=== PATIENT | male | born 1970 | race African-American/Black ===

== ENCOUNTER 2016-04-25 11:43 | Emergency (ER) | payer MEDICAID ==
[~2016-04-25] VITALS: Ht 165.1 cm; Wt 66.0 kg
[~2016-04-25 11:43] MED LIST: ALBU8.5H INH; ALPR2TAB7 PO; BACL10TA PO; CLIN-89 PO; CLON0.2T PO; DIAZ10TA PO; DULO30CA52 PO; GABA-329 PO; HYDR-3995 PO; METO50TA5 PO; QUET200T58 PO; TRAM50TA4 PO
--- OUTSIDE RECORDS SUMMARY | 2016-04-25 11:49 | XMS REPORT | Continuity of Care Document ---
Author Author [facility] Organization [facility] Address Unknown Phone Unavailable Care Team Providers Care Acct Exec Name Role Phone Amy NOLAN MD Primary Care Physician [phone] Insurance Providers Payer Name Policy Number Subscriber Name Relationship Roxanne [employer] [id number] Tristian Stovall 20 Self Advance Directives Directive Response Recorded Date/Time Resuscitation Documents on File No 01/20/14 3:30pm Problems Medical Problems Problem Onset Date Status UTI (urinary tract infection) Unknown Active Suprapubic catheter dysfunction Unknown Active UTI (urinary tract infection) Unknown Active Suprapubic catheter dysfunction Unknown Active Medications Medication Dose Route Sig Days/Qty Instructions Order Date Discontinued Date Status Baclofen 1 Tab PO THREE TIMES A DAY 01/19/14 Active Gabapentin 1 Cap PO THREE TIMES A DAY 01/19/14 Active Metoprolol Succinate 50 Mg PO DAILY 01/19/14 Active Clonidine HCl 1 Tab PO DAILY 01/19/14 Active Diazepam NEEDED 01/19/14 Active Hydrocodone/Acetaminophen 1-2 Tab PO EVERY 4-6 HOURS PRN PAIN 20 Qty Active Social History Social History Problem Response Recorded Date/Time Hx Alcohol Use No 01/19/2014 7:10pm Has the pt used tobacco in the last 12 months Yes 01/20/2014 3:25pm Tobacco Usage none 12/19/2013 7:29pm Query Response Start Date Stop Date Smoking Status Current every day smoker Hospital Discharge Instructions No hospital discharge instructions. Plan of Care No plan of care. Functional Status Query Response Date Recorded Physical Hygiene Total Care January 19, 2014 7:10pm Physical Hygiene Total Care January 19, 2014 7:10pm Allergies, Adverse Reactions, Alerts Allergen Type Severity Reaction Status Last Updated Morphine Allergy Severe swelling of face Active 01/20/14 Immunizations Name Given Type Hx Influenza Vaccination Y nov 2013 Historical Hx Pneumococcal Vaccination No Historical Hx Influenza Vaccination Y nov 2013 Historical Vital Signs Acute Vital Signs Vital Response Date/Time Temperature (Fahrenheit) 98.1 deg F (96.8 - 99.1) Temperature (Calculated Celsius) 36.60951 degrees C (36.0 - 37.3) Temperature Source Temporal Pulse Rate (adult) 83 bpm (60 - 100) Respiratory Rate 16 breaths/min (10 - 20) O2 Sat by Pulse Oximetry 97 % (90 - 100) Oxygen Delivery Method Room Air Blood Pressure 140/101 mm Hg Blood Pressure Source Automatic Cuff Height 5 ft 9 in Weight 126 lb Body Mass Index 18.0 kg/m^2 Results Test Source Date Result Interp. Ref. Range Comments Alanine Aminotransferase (ALT/SGPT) January 19, 2014 8:58pm 39 U/L N 21 -72 Albumin January 19, 2014 8:58pm 3.3 G/DL L 3.5-5.0 Albumin/Globulin Ratio January 19, 2014 8:58pm 1.0 RATIO L 1.1-2.2 Alkaline Phosphatase January 19, 2014 8:58pm 107 U/L N 38-126 Anion Gap January 19, 2014 8:58pm 5 MEQ/L N 5-15 Aspartate Amino Transf (AST/SGOT) January 19, 2014 8:58pm 25 U/L N 17- 59 BUN/Creatinine Ratio January 19, 2014 8:58pm 23 RATIO N 6-26 Band Neutrophils # December 19, 2013 8:08pm 0.1 T/MM3 - Band Neutrophils % December 19, 2013 8:08pm 1.0 % N 0-6 Blood Urea Nitrogen January 19, 2014 8:58pm 18.0 MG/DL N 9-20 Calcium Level January 19, 2014 8:58pm 9.2 MG/DL N 8.4-10.2 Calculated Osmolality January 19, 2014 8:58pm 274 MOSM/KG N 261-280 Carbon Dioxide Level January 19, 2014 8:58pm 28 MEQ/L N 22-30 Chloride Level January 19, 2014 8:58pm 109 MEQ/L H 98-107 Creatinine January 19, 2014 8:58pm 0.8 MG/DL N 0.8-1.5 Eosinophils # (Manual) December 19, 2013 8:08pm 0.3 T/MM3 N 0-0.5 Eosinophils % (Manual) December 19, 2013 8:08pm 5.0 % H 0-4 Globulin January 19, 2014 8:58pm 3.4 G/DL N 2.4-3.6 Glucose Level January 19, 2014 8:58pm 77 MG/DL N 75-110 Hematocrit January 19, 2014 8:58pm 42.9 % N 41-53 Hemoglobin January 19, 2014 8:58pm 14.2 GM/DL N 13.5-17.5 Lymphocytes # (Auto) January 19, 2014 8:58pm 2.2 T/MM3 N 1-4.8 Lymphocytes # (Manual) December 19, 2013 8:08pm 0.7 T/MM3 L 1-4.8 Lymphocytes % (Manual) December 19, 2013 8:08pm 11.0 % L 23-45 Lymphocytes (%) (Auto) January 19, 2014 8:58pm 30.9 % N 23-45 Mean Corpuscular Hemoglobin January 19, 2014 8:58pm 27.5 UUG N 26-34 Mean Corpuscular Hemoglobin Concent January 19, 2014 8:58pm 33.1 GM/DL N 31-37 Mean Corpuscular Volume January 19, 2014 8:58pm 83.1 UM3 N 80-100 Mean Platelet Volume January 19, 2014 8:58pm 9.0 UM3 L 9.4-12.4 Monocytes # (Auto) January 19, 2014 8:58pm 0.5 T/MM3 N 0-0.8 Monocytes # (Manual) December 19, 2013 8:08pm 0.7 T/MM3 N 0-0.8 Monocytes % (Manual) December 19, 2013 8:08pm 11.0 % H 0-9.0 Monocytes (%) (Auto) January 19, 2014 8:58pm 7.0 % N 0-9.0 Neutrophils # (Auto) January 19, 2014 8:58pm 4.5 T/MM3 N 1.8-7.7 Neutrophils # (Manual) December 19, 2013 8:08pm 4.4 T/MM3 N 1.8-7.7 Neutrophils % (Manual) December 19, 2013 8:08pm 72.0 % H 33-66 Neutrophils (%) (Auto) January 19, 2014 8:58pm 62.1 % N 33-66 Platelet Count January 19, 2014 8:58pm 181 T/MM3 N 130-400 Potassium Level January 19, 2014 8:58pm 4.2 MEQ/L N 3.6-5 RDW Standard Deviation January 19, 2014 8:58pm 48.2 FL N 36.9-50.2 Red Blood Count January 19, 2014 8:58pm 5.16 M/MM3 N 4.50-5.90 Sodium Level January 19, 2014 8:58pm 142 MEQ/L N 134-144 Total Bilirubin January 19, 2014 8:58pm 0.30 MG/DL N 0.20-1.30 Total Protein January 19, 2014 8:58pm 6.7 G/DL N 6.3-8.2 Urine Amorphous Phosphates January 19, 2014 9:20pm Moderate - Has specimen been collected/obtained? Y Urine Bacteria January 19, 2014 9:20pm 4+ H - Has specimen been collected/obtained? Y Urine Bilirubin January 19, 2014 9:20pm Negative - Has specimen been collected/obtained? Y Urine Blood January 19, 2014 9:20pm 2+ H - Has specimen been collected /obtained? Y Urine Collection Type January 19, 2014 9:20pm Savage indwelling - Has specimen been collected/obtained? Y Urine Color January 19, 2014 9:20pm Yellow - Has specimen been collected/obtained? Y Urine Culture Indicated December 19, 2013 8:11pm Cult reflexed &setup - Has specimen been collected/obtained? Y Urine Glucose (UA) January 19, 2014 9:20pm Negative - Has specimen been collected/obtained? Y Urine Ketones January 19, 2014 9:20pm Negative - Has specimen been collected/obtained? Y Urine Leukocyte Esterase January 19, 2014 9:20pm 3+ H - Has specimen been collected/obtained? Y Urine Nitrite January 19, 2014 9:20pm Negative - Has specimen been collected/obtained? Y Urine Protein January 19, 2014 9:20pm Trace H - Has specimen been collected/obtained? Y Urine RBC January 19, 2014 9:20pm 1-3 /HPF - Has specimen been collected/obtained? Y Urine Specific [place] January 19, 2014 9:20pm 1.010 L - Has specimen been collected/obtained? Y Urine Squamous Epithelial Cells December 19, 2013 8:11pm None seen - Has specimen been collected/obtained? Y Urine Triple Phosphate Crystals January 19, 2014 9:20pm Many - Has specimen been collected/obtained? Y Urine Turbidity January 19, 2014 9:20pm Cloudy - Has specimen been collected/obtained? Y Urine Urobilinogen January 19, 2014 9:20pm 0.2 EU/DL - Has specimen been collected/obtained? Y Urine WBC January 19, 2014 9:20pm 1-3 /HPF - Has specimen been collected/obtained? Y Urine pH January 19, 2014 9:20pm >=9.0 H - Has specimen been collected /obtained? Y White Blood Count January 19, 2014 8:58pm 7.2 T/MM3 N 4.5-11.0 Chemistry Specimen Hemolysis January 19, 2014 8:58pm < 15 0-25 0-25 : No Hemolysis.26-70: Slight Hemolysis - can falsely elevate K and Urine Protein. 71-285: Moderate Hemolysis - can falsely elevate K, Troponin I, CA 19-9, PTH, CSF GLucose, and Urine Protein, and can falsely decrease Phenytoin. 286-999: Gross Hemolysis - can falsely elevate K, Troponin I, CA 19-9, PTH, CSF Glucose, and Urine Protine, and can falsely decrease Phenytoin. Recommend specimen recollection. Turbidity January 19, 2014 8:58pm < 20 0-20 Glomerular Filtration Rate Calc January 19, 2014 8:58pm 107 - Venous Blood Lactate December 19, 2013 8:08pm 1.9 MMOL/L N 0.6-2.2 Procalcitonin December 19, 2013 8:08pm < 0.05 NG/ML - PCT </=0.5 ng/ mL - sepsis not likely;PCT >0.5 and </=2 ng/mL - sepsis possible; PCT >2 ng/mL - sepsis likely; PCT >/=10 ng/mL - systemic inflammatory response - sepsis or septic shock highly indicated. Icterus Index January 19, 2014 8:58pm < 2 0-7 Blood Culture Peripheral Blood December 19, 2013 8:08pm NO GROWTH AFTER 5 DAYS Urine Culture Urine, Savage Indwelling January 19, 2014 9:20pm Morganella Morganii Ssp Carlos Name: TRISTIAN STOVALL Unit #: [id number] : 1970 Sex: M Loc / Svc: ED DOS: 12/19/13 Signed Report #: [id number] DIAGNOSTIC IMAGING REPORT TYPE OF EXAM: CHEST 1 VIEW Dictated By: JOSE KARIMI MD INDICATION: ITS.REASON: cough, fever CHEST 1 VIEW: Comparison: None FINDINGS: The lungs are clear. There is no abnormal airspace opacity, pleural effusion or pneumothorax identified. 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 The heart size, pulmonary vasculature and mediastinum are within normal limits. Severe degenerative changes and osseous destruction in the right proximal humerus and humeral head. IMPRESSION: No acute cardiopulmonary abnormality. . Procedures Procedure Status Date Provider(s) ROUTINE VENIPUNCTURE completed 12/19/13 CHEST X-RAY 1 VIEW FRONTAL completed 12/19/13 COMPREHEN METABOLIC PANEL completed 12/19/13 URINALYSIS AUTO W/SCOPE completed 12/19/13 ASSAY OF LACTIC ACID completed 12/19/13 PROCALCITONIN (PCT) completed 12/19/13 BL SMEAR W/DIFF WBC COUNT completed 12/19/13 COMPLETE CBC AUTOMATED completed 12/19/13 BLOOD CULTURE FOR BACTERIA completed 12/19/13 BLOOD CULTURE FOR BACTERIA completed 12/19/13 CULTURE AEROBIC IDENTIFY completed 12/19/13 URINE CULTURE/COLONY COUNT completed 12/19/13 MICROBE SUSCEPTIBLE ALBERTO completed 12/19/13 MICROBE SUSCEPTIBLE ALBERTO completed 12/19/13 HYDRATE IV INFUSION ADD-ON completed 12/19/13 HYDRATE IV INFUSION ADD-ON completed 12/19/13 THER/PROPH/DIAG IV INF INIT completed 12/19/13 TX/PRO/DX INJ NEW DRUG ADDON completed 12/19/13 TX/PRO/DX INJ NEW DRUG ADDON completed 12/19/13 EMERGENCY DEPT VISIT completed 12/19/13"INJECTION, HYDROMORPHONE, UP TO 4 MG" completed 12/19/13822669"INJECTION, LEVOFLOXACIN, 250 MG" completed 12/19/13"INJECTION, ONDANSETRON HYDROCHLORIDE, PER 1 MG" completed 12/19/13011970"INFUSION, NORMAL SALINE SOLUTION , 1000 CC" completed 12/19/13 0910723% DEXTROSE/WATER (500 ML=1 UNIT) completed 12/19/13 ROUTINE VENIPUNCTURE completed 01/19/14 INSERT TEMP BLADDER CATH completed 01/19/14 CHRIS MARQUIS MD COMPREHEN METABOLIC PANEL completed 01/19/14 URINALYSIS AUTO W/SCOPE completed 01/19/14 COMPLETE CBC W/AUTO DIFF WBC completed 01/19/14 CULTURE AEROBIC IDENTIFY completed 01/19/14 URINE CULTURE/COLONY COUNT completed 01/19/14 MICROBE SUSCEPTIBLE ALBERTO completed 01/19/14 THER/PROPH/DIAG IV INF INIT completed 01/19/14 TX/PRO/DX INJ NEW DRUG ADDON completed 01/19/14 TX/PRO/DX INJ SAME DRUG COPYING MACHINE REPAIRER completed 01/19/14 EMERGENCY DEPT VISIT completed 01/19/14110407"INJECTION, CEFTRIAXONE SODIUM, PER 250 MG" completed 01/19/14372348"INJECTION, HYDROMORPHONE, UP TO 4 MG" completed 01/19/14173800"INJECTION, HYDROMORPHONE, UP TO 4 MG" completed 01/19/14263788"INJECTION, HEPARIN SODIUM, (HEPARIN LOCK FLUSH), PER completed 003"INFUSION, NORMAL SALINE SOLUTION , 250 CC" completed 01/19/14 Encounters Encounter Location Date/Time Discharged Recurring [facility] 01/25/14 3:00pm Departed Emergency Room [facility] 01/19/14 6:35pm Departed Emergency Room [facility] 12/19/13 7:07pm
--- OUTSIDE RECORDS SUMMARY | 2016-04-25 11:49 | XMS REPORT | Continuity of Care Document ---
Author Author [facility] Organization [facility] Address Unknown Phone Unavailable Care Team Providers Care Career Services Assistant Name Role Phone Amy NOLAN MD Primary Care Physician [phone] Insurance Providers Payer Name Policy Number Subscriber Name Relationship Roxanne [employer] [id number] WilmanTristian 20 Self Problems Medical Problems Problem Onset Date Status UTI (urinary tract infection) Unknown Active Suprapubic catheter dysfunction Unknown Active UTI (urinary tract infection) Unknown Active Suprapubic catheter dysfunction Unknown Active UTI (urinary tract infection) Unknown Active Constipation due to neurogenic bowel Unknown Active Constipation due to neurogenic bowel Unknown Active Medications Medication Dose Route Sig Days/Qty Instructions Order Date Discontinued Date Status Clonidine HCl 1 Tab PO TWICE A DAY 01/19/14 Active Diazepam 1 Tab PO TWICE A DAY PRN SPASMS 01/19/14 Active Tramadol HCl 50 Mg PO THREE TIMES A DAY PRN PAIN 02/12/14 Active Baclofen 1 Tab PO THREE TIMES A DAY 05/07/14 Active Gabapentin 1 Tab PO THREE TIMES A DAY 05/07/14 Active Hydrocodone/Acetaminophen 1 Tab PO Every 6 Hours PRN PAIN 05/07/14 Active Metoprolol Tartrate 50 Mg PO TWICE DAILY WITH MEALS Take 1 tablet, by mouth, 2 times a day with meals. 05/07/14 Active Quetiapine Fumarate 2 Tab PO BEDTIME 05/07/14 Active Alprazolam 1 Tab PO FOUR TIMES DAILY PRN ANXIETY 05/07/14 Active Lactulose 20 G PO DAILY 30 Days 05/19/14 Active Social History Social History Problem Response Recorded Date/Time Hx Substance Use No 05/19/2014 1:31pm Hx Alcohol Use No 05/19/2014 1:31pm Has the pt used tobacco in the last 12 months Yes 03/09/2014 3:16pm Tobacco Usage none 12/19/2013 7:29pm Query Response Start Date Stop Date Smoking Status Current every day smoker Hospital Discharge Instructions No hospital discharge instructions. Plan of Care No plan of care. Functional Status Query Response Date Recorded Physical Hygiene Assist May 19, 2014 1:31pm Disabilities Paralysis May 19, 2014 1:31pm Devices Used Wheelchair May 19, 2014 1:31pm Dressing Assist May 19, 2014 1:31pm Ambulation Assist May 19, 2014 1:31pm Diet Assist May 19, 2014 1:31pm Mental Status Alert Oriented May 19, 2014 4:04pm Disabilities Paralysis May 19, 2014 1:31pm Devices Used Wheelchair May 19, 2014 1:31pm Physical Hygiene Assist May 19, 2014 1:31pm Dressing Assist May 19, 2014 1:31pm Ambulation Assist May 19, 2014 1:31pm Diet Assist May 19, 2014 1:31pm Allergies, Adverse Reactions, Alerts Allergen Type Severity Reaction Status Last Updated Morphine Allergy Severe swelling of face Active 05/19/14 Immunizations Name Given Type Hx Influenza Vaccination Y nov 2013 Historical Hx Pneumococcal Vaccination No Historical Hx Influenza Vaccination Y nov 2013 Historical Vital Signs Acute Vital Signs Vital Response Date/Time Temperature (Fahrenheit) 98.0 deg F (96.8 - 99.1) Temperature (Calculated Celsius) 36.41482 degrees C (36.0 - 37.3) Pulse Rate (adult) 66 bpm (60 - 100) Respiratory Rate 16 breaths/min (10 - 20) O2 Sat by Pulse Oximetry 96 % (90 - 100) Blood Pressure 166/115 mm Hg Height 5 ft 9 in Weight 141 lb Body Mass Index 20.0 kg/m^2 Results Test Source Date Result Interp. Ref. Range Comments Amylase Level May 19, 2014 1:22pm 81 U/L N 30-110 Lipase May 19, 2014 1:22pm 36 U/L N 23-300 Alanine Aminotransferase (ALT/SGPT) May 19, 2014 1:22pm 30 U/L N 21- 72 Albumin May 19, 2014 1:22pm 3.3 G/DL L 3.5-5.0 Albumin/Globulin Ratio May 19, 2014 1:22pm 1.0 RATIO L 1.1-2.2 Alkaline Phosphatase May 19, 2014 1:22pm 81 U/L N 38-126 Anion Gap May 19, 2014 1:22pm 11 MEQ/L N 5-15 Aspartate Amino Transf (AST/SGOT) May 19, 2014 1:22pm 26 U/L N 17-59 BUN/Creatinine Ratio May 19, 2014 1:22pm 29 RATIO H 6-26 Band Neutrophils # December 19, 2013 8:08pm 0.1 T/MM3 - Band Neutrophils % December 19, 2013 8:08pm 1.0 % N 0-6 Basophils # (Auto) May 19, 2014 1:22pm 0.0 T/MM3 N 0-0.2 Basophils (%) (Auto) May 19, 2014 1:22pm 0.7 % N 0-2 Blood Urea Nitrogen May 19, 2014 1:22pm 23.0 MG/DL H 9-20 Calcium Level May 19, 2014 1:22pm 8.9 MG/DL N 8.4-10.2 Calculated Osmolality May 19, 2014 1:22pm 276 MOSM/KG N 261-280 Carbon Dioxide Level May 19, 2014 1:22pm 27 MEQ/L N 22-30 Chemistry Specimen Hemolysis May 19, 2014 1:22pm 19 N 0-25 0-25: No Hemolysis.26-70: Slight Hemolysis - can falsely elevate K and Urine Protein. 71-285: Moderate Hemolysis - can falsely elevate K, Troponin I, CA 19-9, PTH, CSF GLucose, and Urine Protein, and can falsely decrease Phenytoin. 286-999: Gross Hemolysis - can falsely elevate K, Troponin I, CA 19-9, PTH, CSF Glucose, and Urine Protine, and can falsely decrease Phenytoin. Recommend specimen recollection. Chloride Level May 19, 2014 1:22pm 104 MEQ/L N 98-107 Creatinine May 19, 2014 1:22pm 0.8 MG/DL N 0.8-1.5 Eosinophils # (Auto) May 19, 2014 1:22pm 0.2 T/MM3 N 0-0.5 Eosinophils # (Manual) December 19, 2013 8:08pm 0.3 T/MM3 N 0-0.5 Eosinophils % (Manual) December 19, 2013 8:08pm 5.0 % H 0-4 Eosinophils (%) (Auto) May 19, 2014 1:22pm 2.8 % N 0-4 Globulin May 19, 2014 1:22pm 3.3 G/DL N 2.4-3.6 Glomerular Filtration Rate Calc May 19, 2014 1:22pm 107 - Glucose Level May 19, 2014 1:22pm 77 MG/DL N 75-110 Hematocrit May 19, 2014 1:22pm 44.1 % N 41-53 Hemoglobin May 19, 2014 1:22pm 14.7 GM/DL N 13.5-17.5 Icterus Index May 19, 2014 1:22pm < 2 0-7 Immature Granulocyte # (Auto) May 19, 2014 1:22pm 0.01 T/MM3 N 0.00- 0.03 Immature Granulocyte % (Auto) May 19, 2014 1:22pm 0.2 % N 0.0-0.5 Lab Scanned Report March 02, 2014 7:36pm LAB TEST FORM REQUEST - Lymphocytes # (Auto) May 19, 2014 1:22pm 2.4 T/MM3 N 1-4.8 Lymphocytes # (Manual) December 19, 2013 8:08pm 0.7 T/MM3 L 1-4.8 Lymphocytes % (Manual) December 19, 2013 8:08pm 11.0 % L 23-45 Lymphocytes (%) (Auto) May 19, 2014 1:22pm 42.3 % N 23-45 Mean Corpuscular Hemoglobin May 19, 2014 1:22pm 27.4 UUG N 26-34 Mean Corpuscular Hemoglobin Concent May 19, 2014 1:22pm 33.3 GM/DL N 31-37 Mean Corpuscular Volume May 19, 2014 1:22pm 82.3 UM3 N 80-100 Mean Platelet Volume May 19, 2014 1:22pm 10.1 UM3 N 9.4-12.4 Monocytes # (Auto) May 19, 2014 1:22pm 0.8 T/MM3 N 0-0.8 Monocytes # (Manual) December 19, 2013 8:08pm 0.7 T/MM3 N 0-0.8 Monocytes % (Manual) December 19, 2013 8:08pm 11.0 % H 0-9.0 Monocytes (%) (Auto) May 19, 2014 1:22pm 13.2 % H 0-9.0 Neutrophils # (Auto) May 19, 2014 1:22pm 2.3 T/MM3 N 1.8-7.7 Neutrophils # (Manual) December 19, 2013 8:08pm 4.4 T/MM3 N 1.8-7.7 Neutrophils % (Manual) December 19, 2013 8:08pm 72.0 % H 33-66 Neutrophils (%) (Auto) May 19, 2014 1:22pm 40.8 % N 33-66 Platelet Count May 19, 2014 1:22pm 220 T/MM3 N 130-400 Potassium Level May 19, 2014 1:22pm 4.3 MEQ/L N 3.6-5 Procalcitonin March 02, 2014 6:28pm < 0.05 NG/ML - PCT </=0.5 ng/ mL - sepsis not likely;PCT >0.5 and </=2 ng/mL - sepsis possible; PCT >2 ng/mL - sepsis likely; PCT >/=10 ng/mL - systemic inflammatory response - sepsis or septic shock highly indicated. RDW Standard Deviation May 19, 2014 1:22pm 44.0 FL N 36.9-50.2 Red Blood Count May 19, 2014 1:22pm 5.36 M/MM3 N 4.50-5.90 Sodium Level May 19, 2014 1:22pm 142 MEQ/L N 134-144 Total Bilirubin May 19, 2014 1:22pm 0.20 MG/DL N 0.20-1.30 Total Protein May 19, 2014 1:22pm 6.6 G/DL N 6.3-8.2 Troponin I May 19, 2014 1:22pm < 0.012 ng/ml 0-0.12 Troponin values with a difference of 55% increase fromorginal troponin value represent a true biological DELTA value. (%increase Calc=Orginal Troponin value, divided by subsequent Troponin value, multiplied by 100) Turbidity May 19, 2014 1:22pm < 20 0-20 Urine Amorphous Phosphates January 19, 2014 9:20pm Moderate - Has specimen been collected/obtained? Y Urine Bacteria May 19, 2014 1:35pm 1+ H - Has specimen been collected /obtained? Y Urine Bilirubin May 19, 2014 1:35pm Negative - Has specimen been collected/obtained? Y Urine Blood May 19, 2014 1:35pm 1+ H - Has specimen been collected/ obtained? Y Urine Collection Type May 19, 2014 1:35pm Voided-not cc-midstr - Has specimen been collected/obtained? Y Urine Color May 19, 2014 1:35pm Yellow - Has specimen been collected/obtained? Y Urine Culture Indicated May 19, 2014 1:35pm Cult reflexed &setup - Has specimen been collected/obtained? Y Urine Glucose (UA) May 19, 2014 1:35pm Negative - Has specimen been collected/obtained? Y Urine Ketones May 19, 2014 1:35pm Negative - Has specimen been collected/obtained? Y Urine Leukocyte Esterase May 19, 2014 1:35pm 1+ H - Has specimen been collected/obtained? Y Urine Nitrite May 19, 2014 1:35pm Positive H - Has specimen been collected/obtained? Y Urine Protein May 19, 2014 1:35pm Negative - Has specimen been collected/obtained? Y Urine RBC May 19, 2014 1:35pm 1-3 /HPF - Has specimen been collected/obtained? Y Urine Specific [place] May 19, 2014 1:35pm 1.020 - Has specimen been collected/obtained? Y Urine Squamous Epithelial Cells May 19, 2014 1:35pm 0-5 - Has specimen been collected/obtained? Y Urine Triple Phosphate Crystals January 19, 2014 9:20pm Many - Has specimen been collected/obtained? Y Urine Turbidity May 19, 2014 1:35pm Sl cloudy - Has specimen been collected/obtained? Y Urine Urobilinogen May 19, 2014 1:35pm 0.2 EU/DL - Has specimen been collected/obtained? Y Urine WBC May 19, 2014 1:35pm 10-20 /HPF H - Has specimen been collected/obtained? Y Urine Yeast May 19, 2014 1:35pm 4+ H - Has specimen been collected/ obtained? Y Urine pH May 19, 2014 1:35pm 6.0 - Has specimen been collected/ obtained? Y Venous Blood Lactate May 07, 2014 5:03pm 1.2 MMOL/L N 0.6-2.2 White Blood Count May 19, 2014 1:22pm 5.7 T/MM3 N 4.5-11.0 Blood Culture Peripheral Blood May 07, 2014 5:03pm NO GROWTH AFTER 5 DAYS Urine Culture Urine, Savage Indwelling May 07, 2014 6:40pm Enterococ Faecalis - (Group D) Procedures Procedure Status Date Provider(s) OFFICE/OUTPATIENT VISIT EST completed 02/28/14 ROUTINE VENIPUNCTURE completed 03/02/14 COMPREHEN METABOLIC PANEL completed 03/02/14 ASSAY OF LACTIC ACID completed 03/02/14 PROCALCITONIN (PCT) completed 03/02/14 COMPLETE CBC W/AUTO DIFF WBC completed 03/02/14 COMPREHEN METABOLIC PANEL completed 05/07/14 URINALYSIS AUTO W/SCOPE completed 05/07/14 ASSAY OF LACTIC ACID completed 05/07/14 COMPLETE CBC W/AUTO DIFF WBC completed 05/07/14 BLOOD CULTURE FOR BACTERIA completed 05/07/14 URINE CULTURE/COLONY COUNT completed 05/07/14 HYDRATE IV INFUSION ADD-ON completed 05/07/14 HYDRATE IV INFUSION ADD-ON completed 05/07/14 THER/PROPH/DIAG IV INF INIT completed 05/07/14 TX/PRO/DX INJ NEW DRUG ADDON completed 05/07/14 TX/PRO/DX INJ NEW DRUG ADDON completed 05/07/14 EMERGENCY DEPT VISIT completed 05/07/14 369330"INJECTION, CEFTRIAXONE SODIUM, PER 250 MG" completed 05/07/14 801127"INJECTION, HYDROMORPHONE, UP TO 4 MG" completed 05/07/14844434"INJECTION, ONDANSETRON HYDROCHLORIDE, PER 1 MG" completed 05/07/14 [id number]"INFUSION, NORMAL SALINE SOLUTION , 1000 CC" completed 05/07/14 [id number]"INFUSION, NORMAL SALINE SOLUTION , 250 CC" completed 05/07/14 Encounters Encounter Location Date/Time Registered Emergency Room [facility] 05/19/14 12:43pm Departed Emergency Room [facility] 05/07/14 4:15pm Discharged Recurring [facility] 03/09/14 3:01pm Registered Clinic [facility] 03/02/14 6:09pm Discharged Recurring [facility] 03/02/14 3:00pm Registered Clinic [facility] 02/28/14 12:44pm Recent Diagnosis
[2016-04-25 11:50] VITALS: PULSE 77; RESP 18; TEMP 98; O2SAT 99; Ht 165.1 cm; Wt 66.0 kg
--- OUTSIDE RECORDS SUMMARY | 2016-04-25 11:50 | XMS REPORT | Continuity of Care Document ---
Author Author [facility] Organization [facility] Address Unknown Phone Unavailable Care Team Providers Care Derivatives Trader Name Role Phone Amy NOLAN MD Primary Care Physician [phone] Insurance Providers Payer Name Policy Number Subscriber Name Relationship Roxanne [employer] [id number] Tristian Stovall 20 Self Advance Directives Directive Response Recorded Date/Time Dr Kat Resuscitation Status Full Code 02/12/14 8:31am Resuscitation Documents on File No 02/12/14 9:36am Problems Medical Problems Problem Onset Date Status [...] 4-6 HOURS PRN PAIN 20 Qty Active Tramadol HCl 50 Mg PO THREE TIMES A DAY PRN PAIN 02/12/14 Active Meperidine HCl PO PRN 02/12/14 Active Social History Social History Problem Response Recorded Date/Time Chewing Tobacco Status No 02/12/2014 9:37am Hx Substance Use No 02/12/2014 9:37am Hx Alcohol Use No 02/12/2014 9:37am Has the pt used tobacco in the last 12 months Yes 02/12/2014 9:37am Tobacco Usage none 12/19/2013 7:29pm Query Response [...] Vital Signs Vital Response Date/Time Temperature (Fahrenheit) 98.4 deg F (96.8 - 99.1) Temperature (Calculated Celsius) 36.86605 degrees C (36.0 - 37.3) Temperature Source Temporal Pulse Rate (adult) 64 bpm (60 - 100) Respiratory Rate 16 breaths/min (10 - 20) O2 Sat by Pulse Oximetry 97 % (90 - 100) Oxygen Delivery Method Room Air Blood Pressure 159/101 mm Hg Blood Pressure Source Automatic Cuff Height 5 ft 9 in Weight 134 lb Body Mass Index 19.0 kg/m^2 Results Test Source Date Result Interp. [...] Has specimen been collected/obtained? Y Urine Specific [place] January 19, 2014 9:20pm 1.010 L - [...] Urine, Savage Indwelling January 19, 2014 9:20pm Gricelda Gonzalez Name: TRISTIAN STOVALL Unit #: [id number] : 1970 Sex: M Loc / Svc: SCU DOS: 02/12/14 Signed Report #: [id number] DIAGNOSTIC IMAGING REPORT TYPE OF EXAM: PICC LINE REPLACEMENT w FLUORO Dictated By: HOWIE KARIMI MD PICC LINE EXCHANGE: After discussing the details of the procedure, including risks, the patient wished to proceed. Informed consent was obtained. The patient's existing left-sided PICC line was examined via fluoroscopy and showed the tip of the existing PICC line residing in the mid subclavian vein. The hub of the existing PICC line was cut off. A 0.018" guidewire was advanced through the PICC line to the cavoatrial junction. The existing PICC line was removed. Then using fluoroscopic guidance, a new single lumen 4 Fr PICC line was advanced over the guidewire with the tip placed near the cavoatrial junction. A fluoroscopic image was obtained. The guidewire was then removed. Two additional fluoroscopic images were obtained. Internal catheter length is 47 cm. I was able to aspirate blood and inject freely through the port. The procedure was completed without complication. Following this, the patient was transferred back to his pre-operative room. Impression: Successful exchange of the patient's left-sided PICC line. Howie Herzog RPA/ performed this under my personal supervision. . Procedures Procedure Status Date Provider(s) ROUTINE [...] ADDON completed 12/19/13 EMERGENCY DEPT VISIT completed 12/19/13508904"INJECTION, HYDROMORPHONE, UP TO 4 MG" completed 12/19/13730909"INJECTION, LEVOFLOXACIN, 250 MG" completed 12/19/13309766"INJECTION, ONDANSETRON HYDROCHLORIDE, PER 1 MG" completed 12/19/13088590"INFUSION, NORMAL SALINE SOLUTION , 1000 CC" completed 12/19/134962399% DEXTROSE/WATER (500 ML=1 UNIT) completed 12/19/13 ROUTINE VENIPUNCTURE completed 01/19/14 INSERT TEMP BLADDER CATH completed 01/19/14 CHRIS MARQUIS MD [facility] METABOLIC PANEL completed 01/19/14 URINALYSIS AUTO W/SCOPE completed 01/19/14 COMPLETE CBC W/AUTO DIFF WBC completed 01/19/14 CULTURE AEROBIC IDENTIFY completed 01/19/14 URINE CULTURE/COLONY COUNT completed 01/19/14 MICROBE SUSCEPTIBLE ALBERTO completed 01/19/14 THER/PROPH/DIAG IV INF INIT completed 01/19/14 TX/PRO/DX INJ NEW DRUG ADDON completed 01/19/14 TX/PRO/DX INJ SAME DRUG CLOTH EXAMINER HAND completed 01/19/14 EMERGENCY DEPT VISIT completed 01/19/14443719"INJECTION, CEFTRIAXONE SODIUM, PER 250 MG" completed 01/19/14552000"INJECTION, HYDROMORPHONE, UP TO 4 MG" completed 01/19/14843590"INJECTION, HYDROMORPHONE, UP TO 4 MG" completed 01/19/14207379"INJECTION, HEPARIN SODIUM, (HEPARIN LOCK FLUSH), PER completed [id number]"INFUSION, NORMAL SALINE SOLUTION , 250 CC" completed 01/19/14 Cystoscopy with urethral dilation completed 02/12/14 NAHID DIETZ MD Encounters Encounter Location Date/Time Discharged Recurring [facility] 01/25/14 3:00pm Departed Emergency Room [facility] 01/19/14 6:35pm Departed Emergency Room [facility] 12/19/13 7:07pm
--- OUTSIDE RECORDS SUMMARY | 2016-04-25 11:50 | XMS REPORT | Continuity of Care Document ---
Author Author [facility] Organization [facility] Address Unknown Phone Unavailable Care Team Providers Care Analytical Lab Technician Name Role Phone Amy NOLAN MD Primary Care Physician [phone] Insurance Providers Payer Name Policy Number Subscriber Name Relationship Roxanne [employer] [id number] Tristian Stovall 20 Self Advance Directives Directive Response Recorded Date/Time Advanced Directives Type None 05/07/14 4:15pm Problems Medical Problems Problem Onset Date Status UTI (urinary tract infection) Unknown Active Suprapubic catheter dysfunction Unknown Active UTI (urinary tract infection) Unknown Active Suprapubic catheter dysfunction Unknown Active UTI (urinary tract infection) Unknown Active Medications Medication Dose Route Sig [...] Fumarate 2 Tab PO BEDTIME 05/07/14 Active Prazosin HCl 1-2 Cap PO BEDTIME PRN PRN ORDERS 05/07/14 Active Alprazolam 1 Tab PO FOUR TIMES DAILY PRN ANXIETY 05/07/14 Active Phenazopyridine HCl 200 Mg PO AFTER MEALS PRN BLADDER SPASMS OR PAIN 15 Qty 05/07/14 Active Social History Social History Problem Response Recorded Date/Time Hx Substance Use No 05/07/2014 5:18pm Hx Alcohol Use No 05/07/2014 5:18pm Has the pt used tobacco in the last 12 months Yes 03/09/2014 3:16pm Tobacco Usage none 12/19/2013 7:29pm Query Response Start Date Stop Date Smoking Status Current every day smoker Hospital Discharge Instructions No hospital discharge instructions. Plan of Care No plan of care. Functional Status Query Response Date Recorded Physical Hygiene Total Care May 07, 2014 5:18pm Disabilities Visual May 07, 2014 5:18pm Devices Used Glasses Wheelchair May 07, 2014 5:18pm Dressing Assist May 07, 2014 5:18pm Ambulation Total Care May 07, 2014 5:18pm Diet Assist May 07, 2014 5:18pm Mental Status Alert May 07, 2014 7:14pm Disabilities Visual May 07, 2014 5:18pm Devices Used Glasses Wheelchair May 07, 2014 5:18pm Physical Hygiene Total Care May 07, 2014 5:18pm Dressing Assist May 07, 2014 5:18pm Ambulation Total Care May 07, 2014 5:18pm Diet Assist May 07, 2014 5:18pm Allergies, Adverse Reactions, Alerts Allergen Type Severity Reaction Status Last Updated Morphine Allergy Severe swelling of face Active 05/07/14 Immunizations Name Given Type Hx Influenza Vaccination Y nov 2013 Historical Hx Pneumococcal Vaccination No Historical Hx Influenza Vaccination Y nov 2013 Historical Vital Signs Acute Vital Signs Vital Response Date/Time Temperature (Fahrenheit) 96.4 deg F (96.8 - 99.1) Temperature (Calculated Celsius) 35.65258 degrees C (36.0 - 37.3) Pulse Rate (adult) 75 bpm (60 - 100) Respiratory Rate 16 breaths/min (10 - 20) O2 Sat by Pulse Oximetry 97 % (90 - 100) Blood Pressure 153/91 mm Hg Height 5 ft 9 in Weight 145 lb Body Mass Index 21.0 kg/m^2 Results Test Source Date Result Interp. Ref. Range Comments Alanine Aminotransferase (ALT/SGPT) May 07, 2014 5:03pm 45 U/L N 21- 72 Albumin May 07, 2014 5:03pm 2.9 G/DL L 3.5-5.0 Albumin/Globulin Ratio May 07, 2014 5:03pm 0.9 RATIO L 1.1-2.2 Alkaline Phosphatase May 07, 2014 5:03pm 80 U/L N 38-126 Anion Gap May 07, 2014 5:03pm 10 MEQ/L N 5-15 Aspartate Amino Transf (AST/SGOT) May 07, 2014 5:03pm 25 U/L N 17-59 BUN/Creatinine Ratio May 07, 2014 5:03pm 19 RATIO N 6-26 Band Neutrophils # December 19, 2013 8:08pm 0.1 T/MM3 - Band Neutrophils % December 19, 2013 8:08pm 1.0 % N 0-6 Basophils # (Auto) May 07, 2014 5:03pm 0.0 T/MM3 N 0-0.2 Basophils (%) (Auto) May 07, 2014 5:03pm 0.5 % N 0-2 Blood Urea Nitrogen May 07, 2014 5:03pm 17.0 MG/DL N 9-20 Calcium Level May 07, 2014 5:03pm 8.6 MG/DL N 8.4-10.2 Calculated Osmolality May 07, 2014 5:03pm 280 MOSM/KG N 261-280 Carbon Dioxide Level May 07, 2014 5:03pm 25 MEQ/L N 22-30 Chemistry Specimen Hemolysis May 07, 2014 5:03pm < 15 0-25 0-25: No Hemolysis.26-70: Slight Hemolysis - [...] Phenytoin. Recommend specimen recollection. Chloride Level May 07, 2014 5:03pm 109 MEQ/L H 98-107 Creatinine May 07, 2014 5:03pm 0.9 MG/DL N 0.8-1.5 Eosinophils # (Auto) May 07, 2014 5:03pm 0.1 T/MM3 N 0-0.5 Eosinophils # (Manual) December 19, 2013 8:08pm 0.3 T/MM3 N 0-0.5 Eosinophils % (Manual) December 19, 2013 8:08pm 5.0 % H 0-4 Eosinophils (%) (Auto) May 07, 2014 5:03pm 1.8 % N 0-4 Globulin May 07, 2014 5:03pm 3.2 G/DL N 2.4-3.6 Glomerular Filtration Rate Calc May 07, 2014 5:03pm 93 - Glucose Level May 07, 2014 5:03pm 110 MG/DL N 75-110 Hematocrit May 07, 2014 5:03pm 39.5 % L 41-53 Hemoglobin May 07, 2014 5:03pm 13.6 GM/DL N 13.5-17.5 Icterus Index May 07, 2014 5:03pm < 2 0-7 Immature Granulocyte # (Auto) May 07, 2014 5:03pm 0.01 T/MM3 N 0.00- 0.03 Immature Granulocyte % (Auto) May 07, 2014 5:03pm 0.1 % N 0.0-0.5 Lab Scanned Report March 02, 2014 7:36pm LAB TEST FORM REQUEST - Lymphocytes # (Auto) May 07, 2014 5:03pm 2.5 T/MM3 N 1-4.8 Lymphocytes # (Manual) December 19, 2013 8:08pm 0.7 T/MM3 L 1-4.8 Lymphocytes % (Manual) December 19, 2013 8:08pm 11.0 % L 23-45 Lymphocytes (%) (Auto) May 07, 2014 5:03pm 33.3 % N 23-45 Mean Corpuscular Hemoglobin May 07, 2014 5:03pm 27.5 UUG N 26-34 Mean Corpuscular Hemoglobin Concent May 07, 2014 5:03pm 34.4 GM/DL N 31-37 Mean Corpuscular Volume May 07, 2014 5:03pm 80.0 UM3 N 80-100 Mean Platelet Volume May 07, 2014 5:03pm 9.5 UM3 N 9.4-12.4 Monocytes # (Auto) May 07, 2014 5:03pm 0.8 T/MM3 N 0-0.8 Monocytes # (Manual) December 19, 2013 8:08pm 0.7 T/MM3 N 0-0.8 Monocytes % (Manual) December 19, 2013 8:08pm 11.0 % H 0-9.0 Monocytes (%) (Auto) May 07, 2014 5:03pm 10.5 % H 0-9.0 Neutrophils # (Auto) May 07, 2014 5:03pm 4.1 T/MM3 N 1.8-7.7 Neutrophils # (Manual) December 19, 2013 8:08pm 4.4 T/MM3 N 1.8-7.7 Neutrophils % (Manual) December 19, 2013 8:08pm 72.0 % H 33-66 Neutrophils (%) (Auto) May 07, 2014 5:03pm 53.8 % N 33-66 Platelet Count May 07, 2014 5:03pm 241 T/MM3 N 130-400 Potassium Level May 07, 2014 5:03pm 3.9 MEQ/L N 3.6-5 Procalcitonin March 02, 2014 6:28pm < 0.05 NG/ML - PCT </=0.5 ng/ mL - sepsis not likely;PCT >0.5 and </=2 ng/mL - sepsis possible; PCT >2 ng/mL - sepsis likely; PCT >/=10 ng/mL - systemic inflammatory response - sepsis or septic shock highly indicated. RDW Standard Deviation May 07, 2014 5:03pm 43.2 FL N 36.9-50.2 Red Blood Count May 07, 2014 5:03pm 4.94 M/MM3 N 4.50-5.90 Sodium Level May 07, 2014 5:03pm 144 MEQ/L N 134-144 Total Bilirubin May 07, 2014 5:03pm 0.20 MG/DL N 0.20-1.30 Total Protein May 07, 2014 5:03pm 6.1 G/DL L 6.3-8.2 Turbidity May 07, 2014 5:03pm < 20 0-20 Urine Amorphous Phosphates January 19, 2014 9:20pm Moderate - Has specimen been collected/obtained? Y Urine Bacteria May 07, 2014 6:08pm 3+ H - Has specimen been collected /obtained? Y Urine Bilirubin May 07, 2014 6:08pm Negative - Has specimen been collected/obtained? Y Urine Blood May 07, 2014 6:08pm Trace-intact H - Has specimen been collected/obtained? Y Urine Collection Type May 07, 2014 6:08pm Savage indwelling - Has specimen been collected/obtained? Y Urine Color May 07, 2014 6:08pm Yellow - Has specimen been collected/obtained? Y Urine Culture Indicated May 07, 2014 6:08pm Cult reflexed &setup - Has specimen been collected/obtained? Y Urine Glucose (UA) May 07, 2014 6:08pm Negative - Has specimen been collected/obtained? Y Urine Ketones May 07, 2014 6:08pm Negative - Has specimen been collected/obtained? Y Urine Leukocyte Esterase May 07, 2014 6:08pm 2+ H - Has specimen been collected/obtained? Y Urine Nitrite May 07, 2014 6:08pm Positive H - Has specimen been collected/obtained? Y Urine Protein May 07, 2014 6:08pm Negative - Has specimen been collected/obtained? Y Urine RBC May 07, 2014 6:08pm 0-1 /HPF - Has specimen been collected/obtained? Y Urine Specific [place] May 07, 2014 6:08pm 1.020 - Has specimen been collected/obtained? Y Urine Squamous Epithelial Cells December 19, 2013 8:11pm None seen - Has specimen been collected/obtained? Y Urine Triple Phosphate Crystals January 19, 2014 9:20pm Many - Has specimen been collected/obtained? Y Urine Turbidity May 07, 2014 6:08pm Clear - Has specimen been collected/obtained? Y Urine Urobilinogen May 07, 2014 6:08pm 0.2 EU/DL - Has specimen been collected/obtained? Y Urine WBC May 07, 2014 6:08pm 20-30 /HPF H - Has specimen been collected/obtained? Y Urine pH May 07, 2014 6:08pm 7.0 - Has specimen been collected/ obtained? Y Venous Blood Lactate May 07, 2014 5:03pm 1.2 MMOL/L N 0.6-2.2 White Blood Count May 07, 2014 5:03pm 7.6 T/MM3 N 4.5-11.0 Blood Culture Peripheral Blood December 19, 2013 8:08pm NO GROWTH AFTER 5 DAYS Urine Culture Urine, [place] Indwelling January 19, 2014 9:20pm Morganella Morganii Ssp Carlos Name: TRISTIAN STOVALL Unit #: [id number] : 1970 Sex: M Loc / Svc: [facility] DOS: 02/12/14 Signed Report #: [id number] DIAGNOSTIC IMAGING REPORT TYPE OF EXAM: PICC LINE REPLACEMENT w FLUORO Dictated By: JOSE KARIMI MD PICC LINE EXCHANGE: After discussing [...] exchange of the patient's left-sided PICC line. Jose Herzog RPA/RA performed this under my personal supervision. . Procedures Procedure Status Date Provider(s) REPLACE PICC CATH completed 02/12/14 JOSE KARIMI MD CHANGE OF BLADDER TUBE completed 02/12/14 NAHID DIETZ MD FLUOROGUIDE FOR VEIN DEVICE completed 02/12/14267556VYHBC WIRE completed 02/12/14218380"INJECTION, CEFTRIAXONE SODIUM, PER 250 MG" completed 02/12/14151953"INJECTION, HEPARIN SODIUM, (HEPARIN LOCK FLUSH), PER completed 003"INJECTION, MEPERIDINE HYDROCHLORIDE, PER 100 MG" completed 02/12/14380070"INJECTION, MEPERIDINE HYDROCHLORIDE, PER 100 MG" completed 02/12/14"INJECTION, ONDANSETRON HYDROCHLORIDE, PER 1 MG" completed 02/12/14 PROPOFOL INJ 500 MG/50ML completed 02/12/14640467"INJECTION, FENTANYL CITRATE, 0.1 MG" completed 02/12/14508239"INFUSION, NORMAL SALINE SOLUTION , 250 CC" completed 02/12/14 OFFICE/OUTPATIENT VISIT EST completed 02/28/14 ROUTINE VENIPUNCTURE completed 03/02/14 COMPREHEN METABOLIC PANEL completed 03/02/14 ASSAY OF LACTIC ACID completed 03/02/14 PROCALCITONIN (PCT) completed 03/02/14 COMPLETE CBC W/AUTO DIFF WBC completed 03/02/14 Encounters Encounter Location Date/Time Departed Emergency Room [facility] 05/07/14 4:15pm Discharged [facility] 03/09/14 3:01pm Registered Clinic [facility] 03/02/14 6:09pm Discharged [facility] 03/02/14 3:00pm Registered [facility] 02/28/14 12:44pm Recent Diagnosis
--- OUTSIDE RECORDS SUMMARY | 2016-04-25 11:50 | XMS REPORT | Continuity of Care Document ---
Author Author [facility] Organization [facility] Address Unknown Phone Unavailable Care Team Providers Care Precast Concrete Ironworker Name Role Phone Amy NOLAN MD Primary Care Physician [phone] Insurance Providers Payer Name Policy Number Subscriber Name Relationship Roxanne [employer] [id number] Tristian Stovall 20 Self Advance Directives Directive Response Recorded Date/Time Resuscitation Documents on File No 03/02/14 6:00pm Problems Medical Problems Problem Onset Date Status [...] TIMES A DAY PRN PAIN 02/12/14 Active Social History Social History Problem Response Recorded Date/Time Hx Substance Use No 02/12/2014 9:37am Hx Alcohol Use No 02/12/2014 9:37am Has the pt used tobacco in the last 12 months Yes 03/02/2014 5:53pm Tobacco Usage none 12/19/2013 7:29pm Query Response [...] Morphine Allergy Severe swelling of face Active 03/02/14 Immunizations Name Given Type Hx Influenza Vaccination Y nov 2013 Historical Hx Pneumococcal Vaccination No Historical Hx Influenza Vaccination Y nov 2013 Historical Vital Signs Acute Vital Signs Vital Response Date/Time Temperature (Fahrenheit) 96.8 deg F (96.8 - 99.1) Temperature (Calculated Celsius) 36.07530 degrees C (36.0 - 37.3) Temperature Source Temporal Pulse Rate (adult) 63 bpm (60 - 100) Respiratory Rate 12 breaths/min (10 - 20) O2 Sat by Pulse Oximetry 98 % (90 - 100) Oxygen Delivery Method Room Air Blood Pressure 152/103 mm Hg Blood Pressure Source Automatic Cuff Height 5 ft 9 in Weight 140 lb Body Mass Index 20.0 kg/m^2 Results Test Source Date Result Interp. Ref. Range Comments Lab Scanned Report March 02, 2014 7:36pm LAB TEST FORM REQUEST - Alanine Aminotransferase (ALT/SGPT) March 02, 2014 6:28pm 41 U/L N 21- 72 Albumin March 02, 2014 6:28pm 4.0 G/DL N 3.5-5.0 Albumin/Globulin Ratio March 02, 2014 6:28pm 1.2 RATIO N 1.1-2.2 Alkaline Phosphatase March 02, 2014 6:28pm 125 U/L N 38-126 Anion Gap March 02, 2014 6:28pm 6 MEQ/L N 5-15 Aspartate Amino Transf (AST/SGOT) March 02, 2014 6:28pm 38 U/L N 17- 59 BUN/Creatinine Ratio March 02, 2014 6:28pm 24 RATIO N 6-26 Band Neutrophils # December 19, 2013 8:08pm 0.1 T/MM3 - Band Neutrophils % December 19, 2013 8:08pm 1.0 % N 0-6 Basophils # (Auto) March 02, 2014 6:28pm 0.0 T/MM3 N 0-0.2 Basophils (%) (Auto) March 02, 2014 6:28pm 0.4 % N 0-2 Blood Urea Nitrogen March 02, 2014 6:28pm 17.0 MG/DL N 9-20 Calcium Level March 02, 2014 6:28pm 9.5 MG/DL N 8.4-10.2 Calculated Osmolality March 02, 2014 6:28pm 272 MOSM/KG N 261-280 Carbon Dioxide Level March 02, 2014 6:28pm 29 MEQ/L N 22-30 Chemistry Specimen Hemolysis March 02, 2014 6:28pm < 15 0-25 0-25: No Hemolysis.26-70: Slight [...] decrease Phenytoin. Recommend specimen recollection. Chloride Level March 02, 2014 6:28pm 106 MEQ/L N 98-107 Creatinine March 02, 2014 6:28pm 0.7 MG/DL L 0.8-1.5 Eosinophils # (Auto) March 02, 2014 6:28pm 0.1 T/MM3 N 0-0.5 Eosinophils # (Manual) December 19, 2013 8:08pm 0.3 T/MM3 N 0-0.5 Eosinophils % (Manual) December 19, 2013 8:08pm 5.0 % H 0-4 Eosinophils (%) (Auto) March 02, 2014 6:28pm 1.9 % N 0-4 Globulin March 02, 2014 6:28pm 3.4 G/DL N 2.4-3.6 Glomerular Filtration Rate Calc March 02, 2014 6:28pm 124 - Glucose Level March 02, 2014 6:28pm 87 MG/DL N 75-110 Hematocrit March 02, 2014 6:28pm 45.4 % N 41-53 Hemoglobin March 02, 2014 6:28pm 14.9 GM/DL N 13.5-17.5 Icterus Index March 02, 2014 6:28pm < 2 0-7 Immature Granulocyte # (Auto) March 02, 2014 6:28pm 0.00 T/MM3 N 0.00- 0.03 Immature Granulocyte % (Auto) March 02, 2014 6:28pm 0.0 % N 0.0-0.5 Lymphocytes # (Auto) March 02, 2014 6:28pm 1.9 T/MM3 N 1-4.8 Lymphocytes # (Manual) December 19, 2013 8:08pm 0.7 T/MM3 L 1-4.8 Lymphocytes % (Manual) December 19, 2013 8:08pm 11.0 % L 23-45 Lymphocytes (%) (Auto) March 02, 2014 6:28pm 26.6 % N 23-45 Mean Corpuscular Hemoglobin March 02, 2014 6:28pm 27.6 UUG N 26-34 Mean Corpuscular Hemoglobin Concent March 02, 2014 6:28pm 32.8 GM/DL N 31-37 Mean Corpuscular Volume March 02, 2014 6:28pm 84.1 UM3 N 80-100 Mean Platelet Volume March 02, 2014 6:28pm 10.3 UM3 N 9.4-12.4 Monocytes # (Auto) March 02, 2014 6:28pm 0.6 T/MM3 N 0-0.8 Monocytes # (Manual) December 19, 2013 8:08pm 0.7 T/MM3 N 0-0.8 Monocytes % (Manual) December 19, 2013 8:08pm 11.0 % H 0-9.0 Monocytes (%) (Auto) March 02, 2014 6:28pm 8.5 % N 0-9.0 Neutrophils # (Auto) March 02, 2014 6:28pm 4.6 T/MM3 N 1.8-7.7 Neutrophils # (Manual) December 19, 2013 8:08pm 4.4 T/MM3 N 1.8-7.7 Neutrophils % (Manual) December 19, 2013 8:08pm 72.0 % H 33-66 Neutrophils (%) (Auto) March 02, 2014 6:28pm 62.6 % N 33-66 Platelet Count March 02, 2014 6:28pm 197 T/MM3 N 130-400 Potassium Level March 02, 2014 6:28pm 4.6 MEQ/L N 3.6-5 Procalcitonin March 02, 2014 6:28pm < 0.05 NG/ML - PCT </=0.5 ng/ mL - sepsis not likely;PCT >0.5 and </=2 ng/mL - sepsis possible; PCT >2 ng/mL - sepsis likely; PCT >/=10 ng/mL - systemic inflammatory response - sepsis or septic shock highly indicated. RDW Standard Deviation March 02, 2014 6:28pm 47.3 FL N 36.9-50.2 Red Blood Count March 02, 2014 6:28pm 5.40 M/MM3 N 4.50-5.90 Sodium Level March 02, 2014 6:28pm 141 MEQ/L N 134-144 Total Bilirubin March 02, 2014 6:28pm 0.50 MG/DL N 0.20-1.30 Total Protein March 02, 2014 6:28pm 7.4 G/DL N 6.3-8.2 Turbidity March 02, 2014 6:28pm < 20 0-20 Urine Amorphous Phosphates January [...] Has specimen been collected/obtained? Y Urine Specific [place] January 19, 2014 9:20pm 1.010 L - [...] - Has specimen been collected /obtained? Y Venous Blood Lactate March 02, 2014 6:28pm 1.6 MMOL/L N 0.6-2.2 White Blood Count March 02, 2014 6:28pm 7.3 T/MM3 N 4.5-11.0 Blood Culture Peripheral Blood December 19, 2013 8:08pm NO GROWTH AFTER 5 DAYS Urine Culture Urine, Savage Indwelling January 19, 2014 9:20pm Morganponcho Gonzalezii Ssp Carlos Name: TRISTIAN STOVALL Unit #: [id number] : 1970 Sex: M Loc / Svc: [facility] DOS: 02/12/14 Signed Report #: [id number] DIAGNOSTIC IMAGING REPORT TYPE OF EXAM: PICC [...] ADDON completed 12/19/13 EMERGENCY DEPT VISIT completed 12/19/13 [id number]"INJECTION, HYDROMORPHONE, UP TO 4 MG" completed 12/19/13 690897"INJECTION, LEVOFLOXACIN, 250 MG" completed 12/19/13 697776"INJECTION, ONDANSETRON HYDROCHLORIDE, PER 1 MG" completed 12/19/13 921449"INFUSION, NORMAL SALINE SOLUTION , 1000 CC" completed 12/19/13 [id number]% DEXTROSE/WATER (500 ML=1 UNIT) completed 12/19/13 ROUTINE [...] ADDON completed 01/19/14 TX/PRO/DX INJ SAME DRUG RADIO ASSEMBLER completed 01/19/14 EMERGENCY DEPT VISIT completed 01/19/14193487"INJECTION, CEFTRIAXONE SODIUM, PER 250 MG" completed 01/19/14288999"INJECTION, HYDROMORPHONE, UP TO 4 MG" completed 01/19/14775188"INJECTION, HYDROMORPHONE, UP TO 4 MG" completed 01/19/14"INJECTION, HEPARIN SODIUM, (HEPARIN LOCK FLUSH), PER completed 003"INFUSION, NORMAL SALINE SOLUTION , 250 CC" completed 01/19/14 REPLACE PICC CATH completed 02/12/14 JOSE KARIMI MD CHANGE OF BLADDER TUBE completed 02/12/14 NAHID DIETZ MD FLUOROGUIDE FOR VEIN DEVICE completed 02/12/14060844EVQND WIRE completed 02/12/14432242"INJECTION, CEFTRIAXONE SODIUM, PER 250 MG" completed 02/12/14214268"INJECTION, HEPARIN SODIUM, (HEPARIN LOCK FLUSH), PER completed 003"INJECTION, MEPERIDINE HYDROCHLORIDE, PER 100 MG" completed 02/12/14303369"INJECTION, MEPERIDINE HYDROCHLORIDE, PER 100 MG" completed 02/12/14"INJECTION, ONDANSETRON HYDROCHLORIDE, PER 1 MG" completed 02/12/14 PROPOFOL INJ 500 MG/50ML completed 02/12/14"INJECTION, FENTANYL CITRATE, 0.1 MG" completed 02/12/14012844"INFUSION, NORMAL SALINE SOLUTION , 250 CC" completed 02/12/14 OFFICE/OUTPATIENT VISIT EST completed 02/28/14 Encounters Encounter Location Date/Time Discharged Recurring [facility] 03/04/14 1:00pm Registered Clinic [facility] 03/02/14 6:09pm Registered Clinic [facility] 02/28/14 12:44pm Discharged Recurring [facility] 01/20/14 2:53pm Departed Emergency Room [facility] 01/19/14 6:35pm Departed Emergency Room [facility] 12/19/13 7:07pm
--- OUTSIDE RECORDS SUMMARY | 2016-04-25 11:51 | XMS REPORT | Continuity of Care Document ---
Author Author [facility] Organization [facility] Address Unknown Phone Unavailable Support Name Relationship Address Phone MICHOACANO BRITO MD Caregiver [facility] [address] [place] [address] Unavailable GILMER SALAZAR Next Of Kin [address] [place] [address] CP Insurance Providers Payer Name Policy Number Subscriber Name Relationship Medicaid [place] [id number] Tristian Stovall 20 Self Advance Directives Directive Response Recorded Date/Time Advanced Directives Type None 12/19/13 7:07pm Problems Medical Problems Problem Onset Date Status UTI (urinary tract infection) Unknown Active Medications Medication Dose Route Sig Days/Qty Instructions Order Date Discontinued Date Status Levofloxacin 1 Tab PO QD 10 Qty 12/19/13 Active Ondansetron 4 Mg PO Q6H/0300,0900,1500,2100 For NAUSEA &/OR VOMITING 10 Qty Oral disintegrating tablet 12/19/13 Active Social History Social History Problem Response Recorded Date/Time Smoking Status Current every day smoker 12/19/2013 7:30pm When did patient START smoking? 18 12/19/2013 7:30pm Hx Alcohol Use No 12/19/2013 7:30pm Hospital Discharge Instructions No hospital discharge instructions. Plan of Care No plan of care. Functional Status Query Response Date Recorded Physical Hygiene Total Care December 19, 2013 7:30pm Disabilities None December 19, 2013 7:30pm Devices Used Catheter Wheelchair December 19, 2013 7:30pm Dressing Total Care December 19, 2013 7:30pm Ambulation Total Care December 19, 2013 7:30pm Diet Total Care December 19, 2013 7:30pm Mental Status Alert December 19, 2013 9:10pm Disabilities None December 19, 2013 7:30pm Devices Used Catheter Wheelchair December 19, 2013 7:30pm Physical Hygiene Total Care December 19, 2013 7:30pm Dressing Total Care December 19, 2013 7:30pm Ambulation Total Care December 19, 2013 7:30pm Diet Total Care December 19, 2013 7:30pm Allergies, Adverse Reactions, Alerts Allergen Type Severity Reaction Status Last Updated Morphine Allergy Severe swelling of face Active 12/19/13 Immunizations Name Given Type Hx Influenza Vaccination Y nov 2013 Historical Hx Pneumococcal Vaccination No Historical Hx Influenza Vaccination Y nov 2013 Historical Vital Signs Acute Vital Signs Vital Response Date/Time Temperature (Fahrenheit) 98.0 deg F (96.8 - 99.1) Temperature (Calculated Celsius) 36.18259 degrees C (36.0 - 37.3) Pulse Rate (adult) 83 bpm (60 - 100) Respiratory Rate 20 breaths/min (10 - 20) O2 Sat by Pulse Oximetry 97 % (90 - 100) Blood Pressure 131/95 mm Hg Height 5 ft 9 in Weight 131 lb Body Mass Index 19.0 kg/m^2 Results Test Source Date Result Interp. Ref. Range Comments Potassium Level December 19, 2013 8:08pm 4.6 MEQ/L N 3.6-5 Procalcitonin December 19, 2013 8:08pm < 0.05 NG/ML - PCT </=0.5 ng/ mL - sepsis not likely;PCT >0.5 and </=2 ng/mL - sepsis possible; PCT >2 ng/mL - sepsis likely; PCT >/=10 ng/mL - systemic inflammatory response - sepsis or septic shock highly indicated. Eosinophils # (Manual) December 19, 2013 8:08pm 0.3 T/MM3 N 0-0.5 Monocytes # (Manual) December 19, 2013 8:08pm 0.7 T/MM3 N 0-0.8 Lymphocytes # (Manual) December 19, 2013 8:08pm 0.7 T/MM3 L 1-4.8 Neutrophils # (Manual) December 19, 2013 8:08pm 4.4 T/MM3 N 1.8-7.7 Band Neutrophils # December 19, 2013 8:08pm 0.1 T/MM3 - Eosinophils % (Manual) December 19, 2013 8:08pm 5.0 % H 0-4 Monocytes % (Manual) December 19, 2013 8:08pm 11.0 % H 0-9.0 Lymphocytes % (Manual) December 19, 2013 8:08pm 11.0 % L 23-45 Band Neutrophils % December 19, 2013 8:08pm 1.0 % N 0-6 Neutrophils % (Manual) December 19, 2013 8:08pm 72.0 % H 33-66 Mean Platelet Volume December 19, 2013 8:08pm 10.8 UM3 N 9.4-12.4 Platelet Count December 19, 2013 8:08pm 195 T/MM3 N 130-400 RDW Standard Deviation December 19, 2013 8:08pm 48.5 FL N 36.9-50.2 Mean Corpuscular Hemoglobin Concent December 19, 2013 8:08pm 34.1 GM/DL N 31-37 Mean Corpuscular Hemoglobin December 19, 2013 8:08pm 27.5 UUG N 26-34 Mean Corpuscular Volume December 19, 2013 8:08pm 80.6 UM3 N 80-100 Hematocrit December 19, 2013 8:08pm 44.0 % N 41-53 Hemoglobin December 19, 2013 8:08pm 15.0 GM/DL N 13.5-17.5 Red Blood Count December 19, 2013 8:08pm 5.46 M/MM3 N 4.50-5.90 White Blood Count December 19, 2013 8:08pm 6.1 T/MM3 N 4.5-11.0 Urine Culture Indicated December 19, 2013 8:11pm Cult reflexed &setup - Has specimen been collected/obtained? Y Urine Triple Phosphate Crystals December 19, 2013 8:11pm Mod - Has specimen been collected/obtained? Y Urine Amorphous Phosphates December 19, 2013 8:11pm Many - Has specimen been collected/obtained? Y Urine Bacteria December 19, 2013 8:11pm 4+ H - Has specimen been collected/obtained? Y Urine Squamous Epithelial Cells December 19, 2013 8:11pm None seen - Has specimen been collected/obtained? Y Urine RBC December 19, 2013 8:11pm 10-20 /HPF H - Has specimen been collected/obtained? Y Urine WBC December 19, 2013 8:11pm Tntc /HPF H - Has specimen been collected/obtained? Y Alanine Aminotransferase (ALT/SGPT) December 19, 2013 8:08pm 34 U/L N 21 -72 Aspartate Amino Transf (AST/SGOT) December 19, 2013 8:08pm 36 U/L N 17- 59 Albumin/Globulin Ratio December 19, 2013 8:08pm 1.0 RATIO L 1.1-2.2 Globulin December 19, 2013 8:08pm 3.5 G/DL N 2.4-3.6 Albumin December 19, 2013 8:08pm 3.4 G/DL L 3.5-5.0 Total Protein December 19, 2013 8:08pm 6.9 G/DL N 6.3-8.2 Alkaline Phosphatase December 19, 2013 8:08pm 106 U/L N 38-126 Total Bilirubin December 19, 2013 8:08pm 0.60 MG/DL N 0.20-1.30 Calcium Level December 19, 2013 8:08pm 8.7 MG/DL N 8.4-10.2 Calculated Osmolality December 19, 2013 8:08pm 278 MOSM/KG N 261-280 Glucose Level December 19, 2013 8:08pm 85 MG/DL N 75-110 Glomerular Filtration Rate Calc December 19, 2013 8:08pm 93 - BUN/Creatinine Ratio December 19, 2013 8:08pm 27 RATIO H 6-26 Creatinine December 19, 2013 8:08pm 0.9 MG/DL N 0.8-1.5 Blood Urea Nitrogen December 19, 2013 8:08pm 24.0 MG/DL H 9-20 Anion Gap December 19, 2013 8:08pm 10 MEQ/L N 5-15 Carbon Dioxide Level December 19, 2013 8:08pm 27 MEQ/L N 22-30 Chloride Level December 19, 2013 8:08pm 106 MEQ/L N 98-107 Sodium Level December 19, 2013 8:08pm 143 MEQ/L N 134-144 Turbidity December 19, 2013 8:08pm < 20 0-20 Chemistry Specimen Hemolysis December 19, 2013 8:08pm 162 H 0-25 0-25: No Hemolysis.26-70: Slight Hemolysis - can falsely elevate K and Urine Protein. 71-285: Moderate Hemolysis - can falsely elevate K, Troponin I, CA 19-9, PTH, CSF GLucose, and Urine Protein, and can falsely decrease Phenytoin. 286-999: Gross Hemolysis - can falsely elevate K, Troponin I, CA 19-9, PTH, CSF Glucose, and Urine Protine, and can falsely decrease Phenytoin. Recommend specimen recollection. Icterus Index December 19, 2013 8:08pm < 2 0-7 Venous Blood Lactate December 19, 2013 8:08pm 1.9 MMOL/L N 0.6-2.2 Urine Blood December 19, 2013 8:11pm 3+ H - Has specimen been collected /obtained? Y Urine Bilirubin December 19, 2013 8:11pm Negative - Has specimen been collected/obtained? Y Urine Urobilinogen December 19, 2013 8:11pm Normal EU/DL - Has specimen been collected/obtained? Y Urine Ketones December 19, 2013 8:11pm Negative - Has specimen been collected/obtained? Y Urine Glucose (UA) December 19, 2013 8:11pm Negative - Has specimen been collected/obtained? Y Urine Protein December 19, 2013 8:11pm 1+ H - Has specimen been collected/obtained? Y Urine Nitrite December 19, 2013 8:11pm Positive H - Has specimen been collected/obtained? Y Urine Leukocyte Esterase December 19, 2013 8:11pm 3+ H - Has specimen been collected/obtained? Y Urine pH December 19, 2013 8:11pm 8.0 - Has specimen been collected/ obtained? Y Urine Specific [place] December 19, 2013 8:11pm 1.010 L - Has specimen been collected/obtained? Y Urine Turbidity December 19, 2013 8:11pm Turbid - Has specimen been collected/obtained? Y Urine Color December 19, 2013 8:11pm Yellow - Has specimen been collected/obtained? Y Urine Collection Type December 19, 2013 8:11pm Savage indwelling - Has specimen been collected/obtained? Y Procedures No known history of procedures. Encounters Encounter Location Date/Time Registered Emergency Room [facility] 12/19/13 7:07pm Recent Diagnosis
--- OUTSIDE RECORDS SUMMARY | 2016-04-25 11:52 | XMS REPORT | Continuity of Care Document ---
Demographics Preferred Language Unknown Marital Status Unknown Taoist Affiliation Unknown Race Unknown Ethnic Group Unknown Author Author [facility] Organization [facility] Address Unknown Phone Unavailable Allergies Active Description Code Type Severity Reaction Onset Reported/Identified Relationship to Patient Clinical Status Yes fentanyl 3571 Drug Allergy N/A N/A Confirmed or Verified Yes morphine 1545 Drug Allergy N/A N/A Confirmed or Verified Yes morphine morphine Drug Allergy Moderate RASH, EYES SWELL 12/23/2013 Yes morphine NKMA N/A N/A 01/29/2014 Yes fentanyl 3571 Drug Allergy N/A swelling, rash 02/08/2014 Yes morphine 1545 Drug Allergy N/A swelling, rash 02/08/2014 Medications Problems Date Dx Coded Attending Type Code Diagnosis Diagnosed By 02/08/2014 JUAN NOLAN MD 599.0 URIN TRACT INFECTION NOS 02/08/2014 JUAN NOLAN MD 599.60 URINARY OBSTRUCTION NOS 02/08/2014 JUAN NOLAN MD 787.02 NAUSEA ALONE Procedures Code Description Performed By Performed On 38.93 VENOUS CATHETERIZATION NEC Destiny REESE, Kamille W 12/23/2013 71890 URINALYSIS, AUTO, W/O SCOPE JUAN NOLAN MD 02/08/2014 92558 URINE CULTURE/COLONY COUNT JUAN NOLAN MD 02/08/2014 11302 THER/PROPH/DIAG INJ, SC/IM JUAN NOLAN MD 02/08/2014 20138 EMERGENCY DEPT VISIT JUAN NOLAN MD 02/08/2014 J0696 CEFTRIAXONE SODIUM INJECTION JUAN NOLAN MD 02/08/2014 J2175 MEPERIDINE HYDROCHL /100 MG JUAN NOLAN MD 02/08/2014 Results Test Result Range URINALYSIS, ROUTINE - 12/23/13 17:02 UA LEUKOCYTE ESTERASE DIPSTICK 2+ NEGATIVE UA NITRITE DIPSTICK POSITIVE NEGATIVE UA PROTEIN DIPSTICK NEGATIVE NEGATIVE UA GLUCOSE DIPSTICK NEGATIVE NEGATIVE UA KETONE DIPSTICK 1+ NEGATIVE UA UROBILINOGEN DIPSTICK NORMAL NORMAL UA BILIRUBIN DIPSTICK NEGATIVE NEGATIVE UA BLOOD DIPSTICK 2+ NEGATIVE UA COMMENT UA SPECIFIC GRAVITY 1.015 1.015-1.025 UR PH 7.0 5.0-7.0 UA MICROSCOPIC - 12/23/13 17:02 UA AMORPHOUS SEDIMENT 3+ UA BACTERIA 4+ NEGATIVE UA EPITHELIAL CELLS 2+ epi/hpf 0 - 1+ UA MUCUS 3+ NEG TO 1+ UA RBC 0-3 rbc/hpf 0 - 3 UA TRIPLE PHOSPHATE CRYSTALS PRESENT NEGATIVE UA VOLUME FOR EXAM 12.0 mL (12mL STD) UA WBC 20-50 wbc/hpf 0 - 5 URINE CULTURE - 12/23/13 17:02 Microbiology CBC W/DIFF - 12/23/13 17:13 BASOPHIL # 0.1 k/cumm 0.0-0.2 BASOPHIL % 1 % 0-1 COMMENT REVIEWED EOSINOPHIL # 0.1 k/cumm 0.1-0.5 EOSINOPHIL % 2 % 2-4 GRANULOCYTE # 3.2 k/cumm 2.0-9.0 GRANULOCYTE % 46 % 50-75 LYMPHOCYTE # 2.4 k/cumm 1.0-4.0 LYMPHOCYTE % 34 % 20-30 MEAN CELL HGB 26.5 pg 27.0-33.0 MEAN CELL HGB CONCENTRATION 32.5 g/dL 32.0-37.0 MEAN CELL VOLUME 81.6 fl 80.0-100.0 MONOCYTE # 1.2 k/cumm 0.1-1.0 MONOCYTE % 17 % 4-6 RED BLOOD CELL 5.10 m/cumm 4.00-6.00 RED CELL DISTRIBUTION WIDTH 16.3 % 11.0- 15.6 WHITE BLOOD CELL 7.0 k/cumm 5.0-10.0 HEMOGLOBIN 13.5 gm/dL 14.0-18.0 HEMATOCRIT 41.6 % 40.0-54.0 PLATELET COUNT 182 k/cumm 150-400 CHEM/HEM PROFILE-BEDSIDE - 12/23/13 17:22 POTASSIUM 3.7 mmol/L 3.5-5.3 METHOD Bedside ANION GAP -5 mmol/L 10-20 METHOD Bedside GLUCOSE 65 mg/dL 70-99 BLOOD UREA NITROGEN 14 mg/dL 7-20 CREATININE 1.0 mg/dL 0.8-1.3 HEMOGLOBIN 13.6 gm/dL 14.0-18.0 HEMATOCRIT 40.0 % 40.0-54.0 SODIUM 132 mmol/L 135-148 CHLORIDE 118 mmol/L 98-110 CARBON DIOXIDE 24 mmol/L 21-32 CALCIUM IONIZED 4.2 mg/dL 4.5-5.3 Urinalysis - 02/08/14 18:57 Bilirubin Negative Negative Blood Trace-inta Negative Color Yellow Glucose Negative Negative Ketones Negative Negative Leukocyte 1+ Negative Nitrite Negative Negative pH 6.0 5.0-9.0 Urine Appearance SLCLOUDY Protein Negative Negative Urobilinogen 0.2 MG/DL 0.20 Urine Bacteria 1+ Urine Comments REQUESTED BY DR TENNILLE NOLAN 02/08/2014 Urine RBC N0-2 Specific [place] 1.010 1.005-1.030 Urine WBC N16-20 Site VOID Culture Urine - 02/11/14 08:48 Culture Urine Collected: 02/08/14 17:45 GONORRHOEA DNA BY PCR - CHLAMYDIA DNA BY PCR - 03/10/14 14:55 Microbiology GRAM STAIN - 05/23/14 20:58 Microbiology CBC W/DIFF - 05/23/14 20:58 BASOPHIL # 0.1 k/cumm 0.0-0.2 BASOPHIL % 1 % 0-1 EOSINOPHIL # 0.2 k/cumm 0.1-0.5 EOSINOPHIL % 3 % 2-4 GRANULOCYTE # 3.8 k/cumm 2.0-9.0 GRANULOCYTE % 50 % 50-75 LYMPHOCYTE # 2.4 k/cumm 1.0-4.0 LYMPHOCYTE % 32 % 20-30 MEAN CELL HGB 27.6 pg 27.0-33.0 MEAN CELL HGB CONCENTRATION 33.5 g/dL 32.0-37.0 MEAN CELL VOLUME 82.2 fl 80.0-100.0 MONOCYTE # 1.0 k/cumm 0.1-1.0 MONOCYTE % 14 % 4-6 RED BLOOD CELL 5.84 m/cumm 4.00-6.00 RED CELL DISTRIBUTION WIDTH 14.9 % 11.0- 15.6 WHITE BLOOD CELL 7.5 k/cumm 5.0-10.0 HEMOGLOBIN 16.1 gm/dL 14.0-18.0 HEMATOCRIT 48.0 % 40.0-54.0 PLATELET COUNT 255 k/cumm 150-400 URINE CULTURE - 05/23/14 20:58 Microbiology CHEM/HEM PROFILE-BEDSIDE - 05/23/14 21:03 POTASSIUM 4.2 mmol/L 3.5-5.3 METHOD Bedside ANION GAP 20 mmol/L 10-20 METHOD Bedside GLUCOSE 88 mg/dL 70-99 BLOOD UREA NITROGEN 17 mg/dL 7-20 CREATININE 1.0 mg/dL 0.8-1.3 HEMOGLOBIN 17.0 gm/dL 14.0-18.0 HEMATOCRIT 50.0 % 40.0-54.0 SODIUM 144 mmol/L 135-148 CHLORIDE 103 mmol/L 98-110 CARBON DIOXIDE 26 mmol/L 21-32 CALCIUM IONIZED 4.8 mg/dL 4.5-5.3 URINALYSIS, ROUTINE - 05/23/14 21:32 UA LEUKOCYTE ESTERASE DIPSTICK 1+ NEGATIVE UA NITRITE DIPSTICK POSITIVE NEGATIVE UA PROTEIN DIPSTICK TRACE NEGATIVE UA GLUCOSE DIPSTICK NEGATIVE NEGATIVE UA KETONE DIPSTICK NEGATIVE NEGATIVE UA UROBILINOGEN DIPSTICK NORMAL NORMAL UA BILIRUBIN DIPSTICK NEGATIVE NEGATIVE UA BLOOD DIPSTICK 1+ NEGATIVE UA SPECIFIC GRAVITY 1.020 1.015-1.025 UR PH 6.0 5.0-7.0 UA MICROSCOPIC - 05/23/14 21:32 UA AMORPHOUS SEDIMENT 1+ UA BACTERIA 4+ NEGATIVE UA EPITHELIAL CELLS 1+ epi/hpf 0 - 1+ UA MUCUS 2+ NEG TO 1+ UA RBC 3-5 rbc/hpf 0 - 3 UA VOLUME FOR EXAM 12.0 mL (12mL STD) UA WBC 20-50 wbc/hpf 0 - 5 CBC W/DIFF - 03/27/15 10:47 EOSINOPHIL # 0.1 k/cumm 0.1-0.5 EOSINOPHIL % 1 % 2-4 GRANULOCYTE # 3.9 k/cumm 2.0-9.0 LYMPHOCYTE # 2.4 k/cumm 1.0-4.0 LYMPHOCYTE % 34 % 20-30 MEAN CELL HGB 27.9 pg 27.0-33.0 MEAN CELL HGB CONCENTRATION 35.3 g/dL 32.0-37.0 MEAN CELL VOLUME 79.3 fl 80.0-100.0 MONOCYTE # 0.6 k/cumm 0.1-1.0 MONOCYTE % 9 % 4-6 RED BLOOD CELL 5.26 m/cumm 4.00-6.00 RED CELL DISTRIBUTION WIDTH 14.8 % 11.0- 15.6 TARGET CELLS NOTED WHITE BLOOD CELL 7.0 k/cumm 5.0-10.0 HEMOGLOBIN 14.7 gm/dL 14.0-18.0 HEMATOCRIT 41.7 % 40.0-54.0 PLATELET COUNT 257 k/cumm 150-400 MANUAL DIFF(R) - 03/27/15 10:47 DIFFERENTIAL MANUAL SEGMENTED NEUTROPHIL % 56 % 50-70 CHEM/HEM PROFILE-BEDSIDE - 03/27/15 10:52 POTASSIUM 3.7 mmol/L 3.5-5.3 METHOD Bedside ANION GAP 18 mmol/L 10-20 METHOD Bedside GLUCOSE 80 mg/dL 70-99 BLOOD UREA NITROGEN 14 mg/dL 7-20 CREATININE 0.7 mg/dL 0.7-1.3 HEMOGLOBIN 14.6 gm/dL 14.0-18.0 HEMATOCRIT 43.0 % 40.0-54.0 SODIUM 142 mmol/L 135-148 CHLORIDE 104 mmol/L 98-110 CARBON DIOXIDE 24 mmol/L 21-32 CALCIUM IONIZED 4.8 mg/dL 4.5-5.3 URINALYSIS, ROUTINE - 03/27/15 11:02 UA LEUKOCYTE ESTERASE DIPSTICK 2+ NEGATIVE UA NITRITE DIPSTICK POSITIVE NEGATIVE UA PROTEIN DIPSTICK NEGATIVE NEGATIVE UA GLUCOSE DIPSTICK NEGATIVE NEGATIVE UA KETONE DIPSTICK NEGATIVE NEGATIVE UA UROBILINOGEN DIPSTICK NORMAL NORMAL UA BILIRUBIN DIPSTICK NEGATIVE NEGATIVE UA BLOOD DIPSTICK 2+ NEGATIVE UA SPECIFIC GRAVITY 1.016 1.015-1.025 UR PH 9.0 5.0-7.0 UA MICROSCOPIC - 03/27/15 11:02 UA AMORPHOUS SEDIMENT 2+ UA BACTERIA 1+ NEGATIVE UA RBC 0-3 rbc/hpf 0 - 3 UA VOLUME FOR EXAM 12.0 mL (12mL STD) UA WBC 5-10 wbc/hpf 0 - 5 URINE CULTURE - 03/27/15 12:58 Microbiology Encounters ACCT No. Visit Date/Time Discharge Status Pt. Type Provider Facility Loc./Unit Complaint [id number] 12/23/2013 00:00:00 2013 00:00:00 [facility] Emergency [facility] SHIVANI
--- OUTSIDE RECORDS SUMMARY | 2016-04-25 11:54 | XMS REPORT | Continuity of Care Document ---
Author Author [facility] Organization [facility] Address Unknown Phone Unavailable Care Team Providers Care Cashier Manager Name Role Phone Amy NOLAN MD Primary Care Physician [phone] Insurance Providers Payer Name Policy Number Subscriber Name Relationship Roxanne [employer] [id number] Tristian Stovall 20 Self Problems Medical Problems Problem Onset [...] 02/12/2014 9:37am Tobacco Usage none 12/19/2013 7:29pm Hospital Discharge Instructions No hospital discharge instructions. [...] F (96.8 - 99.1) Temperature (Calculated Celsius) 36.78424 degrees C (36.0 - 37.3) Temperature Source Temporal Pulse Rate (adult) 64 bpm (60 - 100) Respiratory Rate 16 breaths/min (10 - 20) O2 Sat by Pulse Oximetry 97 % (90 - 100) Oxygen Delivery Method Room Air Blood Pressure 159/101 mm Hg Blood Pressure Source Automatic Cuff Results Test Source Date Result Interp. Ref. [...] Has specimen been collected/obtained? Y Urine Specific [place]ado January 19, 2014 9:20pm 1.010 L - [...] Ssp Carlos Name: TRISTIAN STOVALL Unit #: [id number] : 1970 Sex: M Loc / Svc: [facility] DOS: 02/12/14 Signed Report #: [id number] DIAGNOSTIC IMAGING REPORT TYPE OF EXAM: PICC [...] the patient's left-sided PICC line. Jose Herzog RPA/ performed this under my personal [...] ADDON completed 12/19/13 EMERGENCY DEPT VISIT completed 12/19/13548102"INJECTION, HYDROMORPHONE, UP TO 4 MG" completed 12/19/13964881"INJECTION, LEVOFLOXACIN, 250 MG" completed 12/19/13"INJECTION, ONDANSETRON HYDROCHLORIDE, PER 1 MG" completed 12/19/13"INFUSION, NORMAL SALINE SOLUTION , 1000 CC" completed 12/19/135% DEXTROSE/WATER (500 ML=1 UNIT) completed 12/19/13 ROUTINE VENIPUNCTURE completed 01/19/14 INSERT TEMP BLADDER CATH completed 01/19/14 [facility] completed 01/19/14 URINALYSIS AUTO W/SCOPE completed 01/19/14 COMPLETE CBC W/AUTO DIFF WBC completed 01/19/14 CULTURE AEROBIC IDENTIFY completed 01/19/14 URINE CULTURE/COLONY COUNT completed 01/19/14 MICROBE SUSCEPTIBLE ALBERTO completed 01/19/14 THER/PROPH/DIAG IV INF INIT completed 01/19/14 TX/PRO/DX INJ NEW DRUG ADDON completed 01/19/14 TX/PRO/DX INJ SAME DRUG HEAD OF PRODUCT completed 01/19/14 EMERGENCY DEPT VISIT completed 01/19/14938164"INJECTION, CEFTRIAXONE SODIUM, PER 250 MG" completed 01/19/14830185"INJECTION, HYDROMORPHONE, UP TO 4 MG" completed 01/19/14319921"INJECTION, HYDROMORPHONE, UP TO 4 MG" completed 01/19/14880451"INJECTION, HEPARIN SODIUM, (HEPARIN LOCK FLUSH), PER completed 003"INFUSION, NORMAL SALINE SOLUTION , 250 CC" completed 01/19/14 REPLACE PICC CATH completed 02/12/14 JOSE KARIMI MD CHANGE OF BLADDER TUBE completed 02/12/14 NAHID DIETZ MD FLUOROGUIDE FOR VEIN DEVICE completed 02/12/14983651SAUZA WIRE completed 01/05/15 729081"INJECTION, CEFTRIAXONE SODIUM, PER 250 MG" completed 02/12/14"INJECTION, HEPARIN SODIUM, (HEPARIN LOCK FLUSH), PER completed "INJECTION, MEPERIDINE HYDROCHLORIDE, PER 100 MG" completed 02/12/14"INJECTION, MEPERIDINE HYDROCHLORIDE, PER 100 MG" completed 02/12/14"INJECTION, ONDANSETRON HYDROCHLORIDE, PER 1 MG" completed 02/12/14 PROPOFOL INJ 500 MG/50ML completed 02/12/14"INJECTION, FENTANYL CITRATE, 0.1 MG" completed 02/12/14"INFUSION, NORMAL SALINE SOLUTION , 250 CC" completed 02/12/14 Encounters Encounter Location Date/Time Registered Clinic [facility] 02/28/14 12:44pm Discharged [facility] 01/20/14 2:53pm Departed Emergency Room [facility] 01/19/14 6:35pm Departed Emergency Room [facility] 12/19/13 7:07pm
--- OUTSIDE RECORDS SUMMARY | 2016-04-25 11:55 | XMS REPORT | Continuity of Care Document ---
Author Author [facility] Organization [facility] Address Unknown Phone Unavailable Care Team Providers Care Tongue Trimmer Name Role Phone Amy NOLAN MD Primary Care Physician [phone] Insurance Providers Guarantor Cheri Stovall Address [address] [place] [address] CP Email DENIED/NO TO PT PORT Payer [facility] Policy Number [id number] Subscriber's Name WilmanCheri L Relationship 18 Self Effective Date 15 Expiration Date 16 Chief Complaint and Reason for Visit Chief Complaint Ear Pain/Injury Reason for Visit [id number] Neck pain Problems Active Problems Medical Problem Onset Date Status Abnormal ECG Unknown Resolved Acute bronchitis Unknown Acute Altered mental status Unknown Acute Bladder spasm Unknown Acute Chronic right hip pain Unknown Acute Constipation due to neurogenic bowel Unknown Chronic Constipation due to neurogenic bowel Unknown Acute Depression Unknown Acute Dysuria Unknown Acute Headache Unknown Acute Hypertension Unknown Chronic 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 Unknown Malfunction of indwelling urinary catheter Unknown Acute Pneumonia Unknown Resolved Quadriplegia Unknown Chronic Salicylate overdose Unknown Acute Suprapubic catheter dysfunction Unknown Acute Suprapubic catheter dysfunction Unknown Acute UTI (urinary tract infection) Unknown Resolved UTI (urinary tract infection) Unknown Acute UTI (urinary tract infection) Unknown Acute Past Problems Medical Problem Onset Date Neck pain Unknown Skin infection Unknown Medications Current Home Medications Medication Dose Units Route Directions Days Qty Instructions Start Date Acetaminophen/Hydrocodone Bitart (Randle 10-325 Tablet) 1 Each Tablet 2 Tab Oral Three Times A Day as needed for Pain 02/21/15 Albuterol Sulfate (Proair Hfa 90 Mcg/Actuation) 8.5 Gm Hfa.aer.ad 1 Puff Inhalation Every 4 Hours as needed for Prn Orders 08/24/14 Alprazolam 2 Mg Tablet 2 Mg Oral Three Times A Day 02/21/15 Baclofen 10 Mg Tablet 10 Mg Oral Three Times A Day 05/07/14 Clindamycin Hcl 150 Mg Capsule 1 Cap Oral Three Times A Day 21 Capsule TAKE WITH A FULL GLASS OF WATER TO AVOID ESOPHAGEAL IRRITATION. 04/22/16 Clonidine Hcl 0.2 Mg Tablet 0.2 Mg Oral Three Times A Day Diazepam (Valium) 10 Mg Tablet 10 Mg Oral Bedtime 01/19/14 Duloxetine Hcl 30 Mg Capsule.dr 30 Mg Oral Daily 11/19/15 Gabapentin 800 Mg Tablet 800 Mg Oral Three Times A Day 04/22/16 Metoprolol Tartrate 50 Mg Tablet 50 Mg Oral Twice Daily With Meals 05/07/14 Quetiapine Fumarate 200 Mg Tablet 200 Mg Oral Bedtime 12/20/14 Tramadol Hcl 50 Mg Tablet 50 Mg Oral Three Times A Day as needed for Pain 02/12/14 Past Home Medications Medication Directions Ordered Status Aspirin , 08/24/14 Discontinued Quetiapine Fumarate (Seroquel Xr) 50 Mg Tablet, 2 Tab Oral Bedtime 05/07/14 Discontinued Quetiapine Fumarate (Seroquel) 200 Mg Tablet, 200 Mg Oral Bedtime 08/24/14 Discontinued Social History Social History Problem Response Recorded Date/Time Onset Date Status Hx Substance Use No 04/22/2016 5:55pm Not Applicable Not Applicable Hx Alcohol Use No 04/22/2016 5:55pm Not Applicable Not Applicable Has the pt used tobacco in the last 12 months Yes 07/20/2015 5:50pm Not Applicable Not Applicable Tobacco Usage none smoke 08/28/2014 9:56pm Not Applicable Not Applicable Query Response Start Date Stop Date Smoking Status Unknown if ever smoked Hospital Discharge Instructions No hospital discharge instructions. Plan of Care Discharge Date 04/22/16 7:28pm Disposition 01 DISCHARGED HOME, SELF-CARE Condition at Discharge Stable Instructions/Education Provided Cellulitis (ED) Acute Neck Pain (ED) Prescriptions See Medication Section Referrals Amy NOLAN MD Address: [address] [place] [address] AMAURY SOLIS DO Address: [address] [place] [phone] Additional Instructions/Education Take the Clindamycin as prescribed. If this is not improving then follow up your primary care provider in clinic. I do want you to follow up with your PCP as well for work up of the neck pain that you have been having. Your CT scan today was normal. Care Plan and Goals Physician Care Plan Problem:Neck Pain, Ear infection Goal: Follow up with primary care provider Instructions: Take medications and follow care plan as discussed/written Functional Status No functional status results. Allergies, Adverse Reactions, Alerts Allergen Type Severity Reaction Status Last Updated Morphine Allergy Severe swelling of face Active 04/22/16 Immunizations Query Response on File Recorded Date/Time Hx Influenza Vaccination Y couple years ago 07/20/15 5:50pm Hx Pneumococcal Vaccination Y 201007/20/15 5:50pm Hx Influenza Vaccination Y couple years ago 07/20/15 5:50pm Influenza Vaccine Hx fall 201404/22/16 5:55pm Vital Signs Acute Vital Signs Vital Response Date/Time Temperature (Fahrenheit) 98.4 deg F (96.8 - 99.1) 04/22/2016 7:28pm Temperature (Calculated Celsius) 36.88032 degrees C (36.0 - 37.3) 04/22/2016 7:28pm Pulse Rate (adult) 96 bpm (60 - 100) 04/22/2016 7:28pm Respiratory Rate 16 breaths/min (10 - 20) 04/22/2016 7:28pm O2 Sat by Pulse Oximetry 96 % (90 - 100) 04/22/2016 7:28pm Blood Pressure 179/120 mm Hg 04/22/2016 7:28pm Height (Feet) 5 feet 04/22/2016 5:30pm Height (Inches) 9.00 inches 04/22/2016 5:30pm Weight (Kilograms) 65.900 kg 04/22/2016 5:30pm Body Mass Index (BMI) 21.0 04/22/2016 5:30pm Results No known relevant diagnostic tests, laboratory data and/or discharge summary. Procedures No known history of procedures. Encounters Encounter Location Arrival/Admit Date Discharge/Depart Date Attending Provider Departed Emergency Room [facility] 04/22/16 5:27pm 04/22/16 7: 28pm JAYE PATTON DO Recent Diagnosis
--- OUTSIDE RECORDS SUMMARY | 2016-04-25 11:56 | XMS REPORT | Continuity of Care Document ---
Author Author [facility] Organization [facility] Address Unknown Phone Unavailable Care Team Providers Care Director Of Emergency Nursing Name Role Phone Amy NOLAN MD Primary Care Physician [phone] Insurance Providers Payer Name Policy Number Subscriber Name Relationship Medicaid [place] [id number] Tristian Stovall 18 Self Problems Medical Problems [...] 1 Tab PO DAILY 01/19/14 Active Diazepam 01/19/14 Active Hydrocodone/Acetaminophen 1-2 Tab PO EVERY 4-6 HOURS PRN PAIN 20 Qty Active Social History Social History Problem Response Recorded Date/Time Hx Alcohol Use No 01/19/2014 7:10pm Tobacco Usage none 12/19/2013 7:29pm Query Response Start Date Stop Date Smoking Status Current every day smoker Hospital Discharge Instructions No hospital discharge instructions. Plan of Care No plan of care. Functional Status Query Response Date Recorded Physical Hygiene Total Care January 19, 2014 7:10pm Disabilities Paralysis January 19, 2014 7:10pm Devices Used Glasses Wheelchair January 19, 2014 7:10pm Dressing Total Care January 19, 2014 7:10pm Ambulation Total Care January 19, 2014 7:10pm Diet Total Care January 19, 2014 7:10pm Mental Status Alert Oriented January 19, 2014 7:10pm Disabilities Paralysis January 19, 2014 7:10pm Devices Used Glasses Wheelchair January 19, 2014 7:10pm Physical Hygiene Total Care January 19, 2014 7:10pm Dressing Total Care January 19, 2014 7:10pm Ambulation Total Care January 19, 2014 7:10pm Diet Total Care January 19, 2014 7:10pm Allergies, Adverse Reactions, Alerts Allergen Type Severity Reaction Status Last Updated Morphine Allergy Severe swelling of face Active 01/19/14 Immunizations Name Given Type Hx Influenza Vaccination Y nov 2013 Historical Hx Pneumococcal Vaccination No Historical Hx Influenza Vaccination Y nov 2013 Historical Vital Signs Acute Vital Signs Vital Response Date/Time Temperature (Fahrenheit) 96.6 deg F (96.8 - 99.1) Temperature (Calculated Celsius) 35.84605 degrees C (36.0 - 37.3) Pulse Rate (adult) 103 bpm (60 - 100) Respiratory Rate 18 breaths/min (10 - 20) O2 Sat by Pulse Oximetry 98 % (90 - 100) Blood Pressure 148/112 mm Hg Height 5 ft 9 in Weight 130 lb Body Mass Index 19.0 kg/m^2 Results [...] Has specimen been collected/obtained? Y Urine Specific [place] January 19, 2014 9:20pm 1.010 L - [...] 5 DAYS Urine Culture Urine, Savage Indwelling December 19, 2013 8:41pm Morganponcho Gonzalezii Ssp Carlos Name: TRISTIAN STOVALL Unit #: [id number] : 1970 Sex: M Loc / Svc: ED DOS: 12/19/13 Signed Report #: [id number] DIAGNOSTIC IMAGING REPORT TYPE OF EXAM: CHEST [...] completed 12/19/13 EMERGENCY DEPT VISIT completed 12/19/13 738475"INJECTION, HYDROMORPHONE, UP TO 4 MG" completed 12/19/13"INJECTION, LEVOFLOXACIN, 250 MG" completed 12/19/13"INJECTION, ONDANSETRON HYDROCHLORIDE, PER 1 MG" completed 12/19/13"INFUSION, NORMAL SALINE SOLUTION , 1000 CC" completed 12/19/139181785% DEXTROSE/WATER (500 ML=1 UNIT) completed 12/19/13 Encounters Encounter Location Date/Time Departed Emergency Room [facility] 01/19/14 6:35pm Departed Emergency Room [facility] 12/19/13 7:07pm Recent Diagnosis
--- OUTSIDE RECORDS SUMMARY | 2016-04-25 11:58 | XMS REPORT | Continuity of Care Document ---
Author Author [facility] Organization [facility] Address Unknown Phone Unavailable Care Team Providers Care Passenger Service Agent Name Role Phone Amy NOLAN MD Primary Care Physician [phone] Insurance Providers Payer Name Policy Number Subscriber Name Relationship Roxanne [employer] [id number] Tristian Stovall 18 Self Problems Medical Problems [...] Vital Signs Vital Response Date/Time Temperature (Fahrenheit) 98.3 deg F (96.8 - 99.1) Temperature (Calculated Celsius) 36.18865 degrees C (36.0 - 37.3) Temperature Source Temporal Pulse Rate (adult) 79 bpm (60 - 100) Respiratory Rate 16 breaths/min (10 - 20) O2 Sat by Pulse Oximetry 97 % (90 - 100) Oxygen Delivery Method Room Air Blood Pressure 141/97 mm Hg Blood Pressure Source Automatic Cuff Height (Feet) 5 feet Height (Inches) 9.00 inches Weight (Kilograms) 67.300 kg Body Mass Index (BMI) 21.9 Results Test Source Date Result Interp. Ref. [...] Has specimen been collected/obtained? Y Urine Specific [place] January 19, 2014 9:20pm 1.010 L - [...] Ssp Carlos Name: TRISTIAN STOVALL Unit #: [id number] : 1970 Sex: M Loc / Svc: [facility] DOS: 02/12/14 Signed Report #: [id number] DIAGNOSTIC IMAGING REPORT TYPE OF EXAM: PICC [...] completed 12/19/13 EMERGENCY DEPT VISIT completed 12/19/13 748266"INJECTION, HYDROMORPHONE, UP TO 4 MG" completed 12/19/13 466320"INJECTION, LEVOFLOXACIN, 250 MG" completed 12/19/13 537455"INJECTION, ONDANSETRON HYDROCHLORIDE, PER 1 MG" completed 12/19/13 993287"INFUSION, NORMAL SALINE SOLUTION , 1000 CC" completed 12/19/13 6710019% DEXTROSE/WATER (500 ML=1 UNIT) completed 12/19/13 ROUTINE [...] ADDON completed 01/19/14 TX/PRO/DX INJ SAME DRUG WOODS LABORER completed 01/19/14 EMERGENCY DEPT VISIT completed 01/19/14007610"INJECTION, CEFTRIAXONE SODIUM, PER 250 MG" completed 01/19/14753950"INJECTION, HYDROMORPHONE, UP TO 4 MG" completed 01/19/14917176"INJECTION, HYDROMORPHONE, UP TO 4 MG" completed 01/19/14504240"INJECTION, HEPARIN SODIUM, (HEPARIN LOCK FLUSH), PER completed 003"INFUSION, NORMAL SALINE SOLUTION , 250 CC" completed 01/19/14 REPLACE PICC CATH completed 02/12/14 JOSE KARIMI MD CHANGE OF BLADDER TUBE completed 02/12/14 NAHID DIETZ MD FLUOROGUIDE FOR VEIN DEVICE completed 02/12/14728558NKVFM WIRE completed 02/12/14263572"INJECTION, CEFTRIAXONE SODIUM, PER 250 MG" completed 02/12/14946976"INJECTION, HEPARIN SODIUM, (HEPARIN LOCK FLUSH), PER completed 003"INJECTION, MEPERIDINE HYDROCHLORIDE, PER 100 MG" completed 02/12/14956169"INJECTION, MEPERIDINE HYDROCHLORIDE, PER 100 MG" completed 02/12/14"INJECTION, ONDANSETRON HYDROCHLORIDE, PER 1 MG" completed 02/12/14 PROPOFOL INJ 500 MG/50ML completed 02/12/14"INJECTION, FENTANYL CITRATE, 0.1 MG" completed 02/12/14761749"INFUSION, NORMAL SALINE SOLUTION , 250 CC" completed 02/12/14 OFFICE/OUTPATIENT VISIT EST completed 02/28/14 ROUTINE VENIPUNCTURE completed 03/02/14 COMPREHEN METABOLIC PANEL completed 03/02/14 ASSAY OF LACTIC ACID completed 03/02/14 PROCALCITONIN (PCT) completed 03/02/14 COMPLETE CBC W/AUTO DIFF WBC completed 03/02/14 Encounters Encounter Location Date/Time Registered [facility] 03/09/14 3:01pm Discharged [facility] 03/04/14 1:00pm Registered Clinic [facility] 03/02/14 6:09pm Registered [facility] 02/28/14 12:44pm Discharged [facility] 01/20/14 2:53pm Departed Emergency Room [facility] 01/19/14 6:35pm Departed Emergency Room [facility] 12/19/13 7:07pm
--- NOTE | 2016-04-25 12:29 | NUR ---
PROVIDER Ruthy BONILLA TRAY SERVER IN TO SEE PATIENT.
--- NOTE | 2016-04-25 12:33 | NUR ---
PROVIDERS DR BEAULIEU AND Ruthy BONILLA MARKET RESEARCH SPECIALIST IN TO SEE PATIENT.
[2016-04-25] MEDS ORDERED: GABA-305 PO (12:40)
[2016-04-25] MEDS ORDERED: QUET300T44 PO (12:41)
[2016-04-25] MEDS ORDERED: MUPI15CR12 TOP (12:53)
[2016-04-25] MEDS ORDERED: CLIN-89 PO (12:53)
[2016-04-25] MEDS ORDERED: OXYC1TAB8 PO (12:53)
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
[2016-04-25] MEDS ORDERED: CLONIDINE 0.2 MG TABLET PO ONE (13:00)
[2016-04-25] MEDS ORDERED: HYDROMORPHONE 2mg/ml INJECTION IM ONE (13:00)
[2016-04-25] MEDS ORDERED: PROMETHAZINE 25 MG INJECTION IM ONE (13:00)
[2016-04-25 13:10] VITALS: BP 175/115
--- OUTSIDE RECORDS SUMMARY | 2016-04-25 13:29 | XMS REPORT | Continuity of Care Document ---
Author Author [facility] Organization [facility] Address Unknown Phone Unavailable Care Team Providers Care Technician Semiconductor Development Name Role Phone Amy NOLAN MD Primary Care Physician [phone] Insurance Providers Payer Name Policy Number Subscriber Name Relationship Roxanne [employer] [id number] Tristian Stovall 18 Self Advance Directives Directive [...] F (96.8 - 99.1) Temperature (Calculated Celsius) 36.14193 degrees C (36.0 - 37.3) Temperature Source [...] Has specimen been collected/obtained? Y Urine Specific [place] January 19, 2014 9:20pm 1.010 L [...] Ssp Carlos Name: TRISTIAN STOVALL Unit #: [id number] : 1970 Sex: M Loc / Svc: ED DOS: 12/19/13 Signed Report #: [id number] DIAGNOSTIC IMAGING REPORT TYPE OF EXAM: CHEST [...] 12/19/13"INJECTION, HYDROMORPHONE, UP TO 4 MG" completed 12/19/13463193"INJECTION, LEVOFLOXACIN, 250 MG" completed 12/19/13"INJECTION, ONDANSETRON HYDROCHLORIDE, PER 1 MG" completed 12/19/13650702"INFUSION, NORMAL SALINE SOLUTION , 1000 CC" completed 12/19/13 0959679% DEXTROSE/WATER (500 ML=1 UNIT) completed 12/19/13 ROUTINE [...] ADDON completed 01/19/14 TX/PRO/DX INJ SAME DRUG INSURANCE SALES PRODUCER completed 01/19/14 EMERGENCY DEPT VISIT completed 01/19/14746954"INJECTION, CEFTRIAXONE SODIUM, PER 250 MG" completed 01/19/14577783"INJECTION, HYDROMORPHONE, UP TO 4 MG" completed 01/19/14116429"INJECTION, HYDROMORPHONE, UP TO 4 MG" completed 01/19/14712631"INJECTION, HEPARIN SODIUM, (HEPARIN LOCK FLUSH), PER completed 003"INFUSION, NORMAL SALINE SOLUTION , 250 CC" completed 01/19/14 Encounters Encounter Location Date/Time Discharged Recurring [facility] 01/25/14 3:00pm Departed Emergency Room [facility] 01/19/14 6:35pm Departed Emergency Room [facility] 12/19/13 7:07pm
--- OUTSIDE RECORDS SUMMARY | 2016-04-25 13:29 | XMS REPORT | Continuity of Care Document ---
Author Author [facility] Organization [facility] Address Unknown Phone Unavailable Care Team Providers Care Chemist Helper Name Role Phone Amy NOLAN MD Primary Care Physician [phone] Insurance Providers Payer Name Policy Number Subscriber Name Relationship Roxanne [employer] [id number] WilmanTristian 18 Self Problems Medical Problems Problem [...] F (96.8 - 99.1) Temperature (Calculated Celsius) 36.63518 degrees C (36.0 - 37.3) Pulse Rate [...] Has specimen been collected/obtained? Y Urine Specific [place] May 19, 2014 1:35pm 1.020 - Has [...] completed 05/07/14 EMERGENCY DEPT VISIT completed 05/07/14 644194"INJECTION, CEFTRIAXONE SODIUM, PER 250 MG" completed 05/07/14 104875"INJECTION, HYDROMORPHONE, UP TO 4 MG" completed 05/07/14088618"INJECTION, ONDANSETRON HYDROCHLORIDE, PER 1 MG" completed 05/07/14 830913"INFUSION, NORMAL SALINE SOLUTION , 1000 CC" completed 05/07/14 867434"INFUSION, NORMAL SALINE SOLUTION , 250 CC" completed 05/07/14 Encounters Encounter Location Date/Time Registered Emergency Room [facility] 05/19/14 12:43pm Departed Emergency Room [facility] 05/07/14 4:15pm Discharged Recurring [facility] 03/09/14 3:01pm Registered Clinic [facility] 03/02/14 6:09pm Discharged Recurring [facility] 03/02/14 3:00pm Registered Clinic [facility] 02/28/14 12:44pm Recent Diagnosis
--- OUTSIDE RECORDS SUMMARY | 2016-04-25 13:30 | XMS REPORT | Continuity of Care Document ---
Author Author [facility]IVE Organization [facility] LIVE Address Unknown Phone Unavailable Care Team Providers Care Portable Sawmill Operator Name Role Phone Amy NOLAN MD Primary Care Physician [phone] Insurance Providers Payer Name Policy Number Subscriber Name Relationship Roxanne [employer] [id number] Tristian Stovall 20 Self Advance Directives Directive [...] F (96.8 - 99.1) Temperature (Calculated Celsius) 36.70581 degrees C (36.0 - 37.3) Temperature Source [...] Has specimen been collected/obtained? Y Urine Specific [place] January 19, 2014 9:20pm 1.010 L - [...] Gricelda Gonzalez Name: TRISTIAN STOVALL Unit #: [id number] : 1970 Sex: M Loc / Svc: [facility] DOS: 02/12/14 Signed Report #: [id number] DIAGNOSTIC IMAGING REPORT TYPE OF EXAM: PICC [...] ADDON completed 12/19/13 EMERGENCY DEPT VISIT completed 12/19/13587435"INJECTION, HYDROMORPHONE, UP TO 4 MG" completed 12/19/13076709"INJECTION, LEVOFLOXACIN, 250 MG" completed 12/19/13032044"INJECTION, ONDANSETRON HYDROCHLORIDE, PER 1 MG" completed 12/19/13712301"INFUSION, NORMAL SALINE SOLUTION , 1000 CC" completed 12/19/133934750% DEXTROSE/WATER (500 ML=1 UNIT) completed 12/19/13 ROUTINE VENIPUNCTURE completed 01/19/14 INSERT TEMP BLADDER CATH completed 01/19/14 CHRIS MARQUIS MD [facility] METABOLIC PANEL completed 01/19/14 URINALYSIS AUTO W/SCOPE completed 01/19/14 COMPLETE CBC W/AUTO DIFF WBC completed 01/19/14 CULTURE AEROBIC IDENTIFY completed 01/19/14 URINE CULTURE/COLONY COUNT completed 01/19/14 MICROBE SUSCEPTIBLE ALBERTO completed 01/19/14 THER/PROPH/DIAG IV INF INIT completed 01/19/14 TX/PRO/DX INJ NEW DRUG ADDON completed 01/19/14 TX/PRO/DX INJ SAME DRUG COSMETIC SURGEON completed 01/19/14 EMERGENCY DEPT VISIT completed 01/19/14216659"INJECTION, CEFTRIAXONE SODIUM, PER 250 MG" completed 01/19/14471833"INJECTION, HYDROMORPHONE, UP TO 4 MG" completed 01/19/14346068"INJECTION, HYDROMORPHONE, UP TO 4 MG" completed 01/19/14086765"INJECTION, HEPARIN SODIUM, (HEPARIN LOCK FLUSH), PER completed 455208"INFUSION, NORMAL SALINE SOLUTION , 250 CC" completed 01/19/14 Cystoscopy with urethral dilation completed 02/12/14 NAHID DIETZ MD Encounters Encounter Location Date/Time Discharged Recurring [facility] 01/25/14 3:00pm Departed Emergency Room [facility] 01/19/14 6:35pm Departed Emergency Room [facility] 12/19/13 7:07pm
--- OUTSIDE RECORDS SUMMARY | 2016-04-25 13:30 | XMS REPORT | Continuity of Care Document ---
Author Author [facility] LIVE Organization [facility] LIVE Address Unknown Phone Unavailable Care Team Providers Care Rubber Mold Maker Name Role Phone Amy NOLAN MD Primary Care Physician [phone] Insurance Providers Payer Name Policy Number Subscriber Name Relationship Roxanne [employer] [id number] Tristian Stovall 20 Self Advance Directives Directive [...] F (96.8 - 99.1) Temperature (Calculated Celsius) 35.15615 degrees C (36.0 - 37.3) Pulse Rate [...] Has specimen been collected/obtained? Y Urine Specific [place] May 07, 2014 6:08pm 1.020 - Has [...] Ssp Carlos Name: TRISTIAN STOVALL Unit #: [id number] : 1970 Sex: M Loc / Svc: [facility] DOS: 02/12/14 Signed Report #: [id number] DIAGNOSTIC IMAGING REPORT TYPE OF EXAM: PICC [...] DIETZ MD FLUOROGUIDE FOR VEIN DEVICE completed 02/12/14839805UIUCW WIRE completed 02/12/14377076"INJECTION, CEFTRIAXONE SODIUM, PER 250 MG" completed 02/12/14943784"INJECTION, HEPARIN SODIUM, (HEPARIN LOCK FLUSH), PER completed 003"INJECTION, MEPERIDINE HYDROCHLORIDE, PER 100 MG" completed 02/12/14120189"INJECTION, MEPERIDINE HYDROCHLORIDE, PER 100 MG" completed 02/12/14"INJECTION, ONDANSETRON HYDROCHLORIDE, PER 1 MG" completed 02/12/14 PROPOFOL INJ 500 MG/50ML completed 02/12/14696214"INJECTION, FENTANYL CITRATE, 0.1 MG" completed 02/12/14859471"INFUSION, NORMAL SALINE SOLUTION , 250 CC" completed 02/12/14 OFFICE/OUTPATIENT VISIT EST completed 02/28/14 ROUTINE VENIPUNCTURE completed 03/02/14 COMPREHEN METABOLIC PANEL completed 03/02/14 ASSAY OF LACTIC ACID completed 03/02/14 PROCALCITONIN (PCT) completed 03/02/14 COMPLETE CBC W/AUTO DIFF WBC completed 03/02/14 Encounters Encounter Location Date/Time Departed Emergency Room [facility] 05/07/14 4:15pm Discharged [facility] 03/09/14 3:01pm Registered Clinic [facility] 03/02/14 6:09pm Discharged [facility] 03/02/14 3:00pm Registered [facility] 02/28/14 12:44pm Recent Diagnosis
--- OUTSIDE RECORDS SUMMARY | 2016-04-25 13:30 | XMS REPORT | Continuity of Care Document ---
Author Author [facility] LIVE Organization [facility] LIVE Address Unknown Phone Unavailable Care Team Providers Care Boat Master Name Role Phone Amy NOLAN MD Primary Care Physician [phone] Insurance Providers Payer Name Policy Number Subscriber Name Relationship Roxanne [employer] [id number] Tristian Stovall 20 Self Advance Directives Directive [...] F (96.8 - 99.1) Temperature (Calculated Celsius) 36.67240 degrees C (36.0 - 37.3) Temperature Source [...] Has specimen been collected/obtained? Y Urine Specific [place] January 19, 2014 9:20pm 1.010 L - [...] Ssp Carlos Name: TRISTIAN STOVALL Unit #: [id number] : 1970 Sex: M Loc / Svc: [facility] DOS: 02/12/14 Signed Report #: [id number] DIAGNOSTIC IMAGING REPORT TYPE OF EXAM: PICC [...] completed 12/19/13 EMERGENCY DEPT VISIT completed 12/19/13 966343"INJECTION, HYDROMORPHONE, UP TO 4 MG" completed 12/19/13 619431"INJECTION, LEVOFLOXACIN, 250 MG" completed 12/19/13 960746"INJECTION, ONDANSETRON HYDROCHLORIDE, PER 1 MG" completed 12/19/13 590490"INFUSION, NORMAL SALINE SOLUTION , 1000 CC" completed 12/19/13 7052170% DEXTROSE/WATER (500 ML=1 UNIT) completed 12/19/13 ROUTINE [...] ADDON completed 01/19/14 TX/PRO/DX INJ SAME DRUG PETROLEUM TERMINAL PLANT OPERATOR completed 01/19/14 EMERGENCY DEPT VISIT completed 01/19/14008604"INJECTION, CEFTRIAXONE SODIUM, PER 250 MG" completed 01/19/14849669"INJECTION, HYDROMORPHONE, UP TO 4 MG" completed 01/19/14505440"INJECTION, HYDROMORPHONE, UP TO 4 MG" completed 01/19/14"INJECTION, HEPARIN SODIUM, (HEPARIN LOCK FLUSH), PER completed 003"INFUSION, NORMAL SALINE SOLUTION , 250 CC" completed 01/19/14 REPLACE PICC CATH completed 02/12/14 JOSE KARIMI MD CHANGE OF BLADDER TUBE completed 02/12/14 NAHID DIETZ MD FLUOROGUIDE FOR VEIN DEVICE completed 02/12/14279386NIICK WIRE completed 02/12/14091496"INJECTION, CEFTRIAXONE SODIUM, PER 250 MG" completed 02/12/14383704"INJECTION, HEPARIN SODIUM, (HEPARIN LOCK FLUSH), PER completed 003"INJECTION, MEPERIDINE HYDROCHLORIDE, PER 100 MG" completed 02/12/14254649"INJECTION, MEPERIDINE HYDROCHLORIDE, PER 100 MG" completed 02/12/14"INJECTION, ONDANSETRON HYDROCHLORIDE, PER 1 MG" completed 02/12/14 PROPOFOL INJ 500 MG/50ML completed 02/12/14"INJECTION, FENTANYL CITRATE, 0.1 MG" completed 02/12/14800582"INFUSION, NORMAL SALINE SOLUTION , 250 CC" completed 02/12/14 OFFICE/OUTPATIENT VISIT EST completed 02/28/14 Encounters Encounter Location Date/Time Discharged Recurring [facility] 03/04/14 1:00pm Registered Clinic [facility] 03/02/14 6:09pm Registered Clinic [facility] 02/28/14 12:44pm Discharged Rec[facility]ring [facility] 01/20/14 2:53pm Departed Emergency Room [facility] 01/19/14 6:35pm Departed Emergency Room [facility] 12/19/13 7:07pm
--- OUTSIDE RECORDS SUMMARY | 2016-04-25 13:31 | XMS REPORT | Continuity of Care Document ---
Author Author [facility] LIVE Organization [facility] LIVE Address Unknown Phone Unavailable Support Name Relationship Address Phone MICHOACANO BRITO MD Caregiver [facility] [address] [place] [address] Unavailable GILMER SALAZAR Next Of Kin [address] [place] [address] CP Insurance Providers Payer Name Policy Number Subscriber Name Relationship Medicaid [place] [id number] Tristian Stovall 20 Self Advance Directives Directive [...] F (96.8 - 99.1) Temperature (Calculated Celsius) 36.66503 degrees C (36.0 - 37.3) Pulse Rate [...] specimen been collected/ obtained? Y Urine Specific [place] December 19, 2013 8:11pm 1.010 L - [...] Encounters Encounter Location Date/Time Registered Emergency Room [facility] 12/19/13 7:07pm Recent Diagnosis
--- OUTSIDE RECORDS SUMMARY | 2016-04-25 13:32 | XMS REPORT | Continuity of Care Document ---
Demographics Preferred Language Unknown Marital Status Unknown Denominational Affiliation Unknown Race Unknown Ethnic Group Unknown Author Author [facility] Organization [facility] Address Unknown Phone Unavailable Allergies Active [...] CATHETERIZATION NEC Destiny REESE, Kamille W 12/23/2013 19422 URINALYSIS, AUTO, W/O SCOPE JUAN NOLAN MD 02/08/2014 96934 URINE CULTURE/COLONY COUNT JUAN NOLAN MD 02/08/2014 13457 THER/PROPH/DIAG INJ, SC/IM JUAN NOLAN MD 02/08/2014 80973 EMERGENCY DEPT VISIT JUAN NOLAN MD 02/08/2014 [...] TENNILLE NOLAN 02/08/2014 Urine RBC N0-2 Specific [place] 1.010 1.005-1.030 Urine WBC N16-20 Site VOID [...] Status Pt. Type Provider Facility Loc./Unit Complaint [id number] 12/23/2013 00:00:00 2013 00:00:00 [facility] Emergency [facility] SHIVANI
--- OUTSIDE RECORDS SUMMARY | 2016-04-25 13:33 | XMS REPORT | Continuity of Care Document ---
Author Author [facility] LIVE Organization [facility]IVE Address Unknown Phone Unavailable Care Team Providers Care Welder/Fabricator Name Role Phone Amy NOLAN MD Primary Care Physician [phone] Insurance Providers Payer Name Policy Number Subscriber Name Relationship Roxanne [employer] [id number] Tristian Stovall 20 Self Problems Medical Problems [...] F (96.8 - 99.1) Temperature (Calculated Celsius) 36.34098 degrees C (36.0 - 37.3) Temperature Source [...] Has specimen been collected/obtained? Y Urine Specific [place] January 19, 2014 9:20pm 1.010 L - [...] Ssp Carlos Name: TRISTIAN STOVALL Unit #: [id number] : 1970 Sex: M Loc / Svc: [facility] DOS: 02/12/14 Signed Report #: [id number] DIAGNOSTIC IMAGING REPORT TYPE OF EXAM: PICC [...] ADDON completed 12/19/13 EMERGENCY DEPT VISIT completed 12/19/13915145"INJECTION, HYDROMORPHONE, UP TO 4 MG" completed 12/19/13704721"INJECTION, LEVOFLOXACIN, 250 MG" completed 12/19/13"INJECTION, ONDANSETRON HYDROCHLORIDE, PER 1 MG" completed 12/19/13"INFUSION, NORMAL SALINE SOLUTION , 1000 CC" completed 12/19/135% DEXTROSE/WATER (500 ML=1 UNIT) completed 12/19/13 ROUTINE VENIPUNCTURE completed 01/19/14 INSERT TEMP BLADDER CATH completed 01/19/14 [facility] completed 01/19/14 URINALYSIS AUTO W/SCOPE completed 01/19/14 COMPLETE CBC W/AUTO DIFF WBC completed 01/19/14 CULTURE AEROBIC IDENTIFY completed 01/19/14 URINE CULTURE/COLONY COUNT completed 01/19/14 MICROBE SUSCEPTIBLE ALBERTO completed 01/19/14 THER/PROPH/DIAG IV INF INIT completed 01/19/14 TX/PRO/DX INJ NEW DRUG ADDON completed 01/19/14 TX/PRO/DX INJ SAME DRUG WELDING MANAGER completed 01/19/14 EMERGENCY DEPT VISIT completed 01/19/14567390"INJECTION, CEFTRIAXONE SODIUM, PER 250 MG" completed 01/19/14994121"INJECTION, HYDROMORPHONE, UP TO 4 MG" completed 01/19/14323328"INJECTION, HYDROMORPHONE, UP TO 4 MG" completed 01/19/14954700"INJECTION, HEPARIN SODIUM, (HEPARIN LOCK FLUSH), PER completed 003"INFUSION, NORMAL SALINE SOLUTION , 250 CC" completed 01/19/14 REPLACE PICC CATH completed 02/12/14 JOSE KARIMI MD CHANGE OF BLADDER TUBE completed 02/12/14 NAHID DIETZ MD FLUOROGUIDE FOR VEIN DEVICE completed 02/12/14763048KMDNQ WIRE completed 01/05/15 769582"INJECTION, CEFTRIAXONE SODIUM, PER 250 MG" completed 02/12/14"INJECTION, HEPARIN SODIUM, (HEPARIN LOCK FLUSH), PER completed "INJECTION, MEPERIDINE HYDROCHLORIDE, PER 100 MG" completed 02/12/14"INJECTION, MEPERIDINE HYDROCHLORIDE, PER 100 MG" completed 02/12/14"INJECTION, ONDANSETRON HYDROCHLORIDE, PER 1 MG" completed 02/12/14 PROPOFOL INJ 500 MG/50ML completed 02/12/14"INJECTION, FENTANYL CITRATE, 0.1 MG" completed 02/12/14"INFUSION, NORMAL SALINE SOLUTION , 250 CC" completed 02/12/14 Encounters Encounter Location Date/Time Registered Clinic [facility] 02/28/14 12:44pm Discharged [facility] 01/20/14 2:53pm Departed Emergency Room [facility] 01/19/14 6:35pm Departed Emergency Room [facility] 12/19/13 7:07pm
--- OUTSIDE RECORDS SUMMARY | 2016-04-25 13:36 | XMS REPORT | Continuity of Care Document ---
Author Author LIVE Organization LIVE Address Unknown Phone Unavailable Care Team Providers Care Intellectual Property Counsel Name Role Phone Amy NOLAN MD Primary Care Physician [phone] Insurance Providers Payer Name Policy Number Subscriber Name Relationship Medicaid [place] [id number] Tristian Stovall 20 Self Problems Medical Problems [...] F (96.8 - 99.1) Temperature (Calculated Celsius) 35.42398 degrees C (36.0 - 37.3) Pulse Rate [...] Has specimen been collected/obtained? Y Urine Specific [place] January 19, 2014 9:20pm 1.010 L - [...] Ssp Carlos Name: TRISTIAN STOVALL Unit #: [id number] : 1970 Sex: M Loc / Svc: ED DOS: 12/19/13 Signed Report #: [id number] DIAGNOSTIC IMAGING REPORT TYPE OF EXAM: CHEST [...] completed 12/19/13 EMERGENCY DEPT VISIT completed 12/19/13 066830"INJECTION, HYDROMORPHONE, UP TO 4 MG" completed 12/19/13"INJECTION, LEVOFLOXACIN, 250 MG" completed 12/19/13"INJECTION, ONDANSETRON HYDROCHLORIDE, PER 1 MG" completed 12/19/13"INFUSION, NORMAL SALINE SOLUTION , 1000 CC" completed 12/19/132344333% DEXTROSE/WATER (500 ML=1 UNIT) completed 12/19/13 Encounters Encounter Location Date/Time Departed Emergency Room [facility] 01/19/14 6:35pm Departed Emergency Room [facility] 12/19/13 7:07pm Recent Diagnosis
--- OUTSIDE RECORDS SUMMARY | 2016-04-25 13:37 | XMS REPORT | Continuity of Care Document ---
Author Author [facility] LIVE Organization [facility]IVE Address Unknown Phone Unavailable Care Team Providers Care Sports Management Internship Name Role Phone Amy NOLAN MD Primary Care Physician [phone] Insurance Providers Payer Name Policy Number Subscriber Name Relationship Roxanne [employer] [id number] Tristian Stovall 20 Self Problems Medical Problems [...] F (96.8 - 99.1) Temperature (Calculated Celsius) 36.65183 degrees C (36.0 - 37.3) Temperature Source [...] Has specimen been collected/obtained? Y Urine Specific [place] January 19, 2014 9:20pm 1.010 L - [...] Ssp Carlos Name: TRISTIAN STOVALL Unit #: [id number] : 1970 Sex: M Loc / Svc: [facility] DOS: 02/12/14 Signed Report #: [id number] DIAGNOSTIC IMAGING REPORT TYPE OF EXAM: PICC [...] completed 12/19/13 EMERGENCY DEPT VISIT completed 12/19/13 623723"INJECTION, HYDROMORPHONE, UP TO 4 MG" completed 12/19/13 029965"INJECTION, LEVOFLOXACIN, 250 MG" completed 12/19/13 640219"INJECTION, ONDANSETRON HYDROCHLORIDE, PER 1 MG" completed 12/19/13 126318"INFUSION, NORMAL SALINE SOLUTION , 1000 CC" completed 12/19/13 3512772% DEXTROSE/WATER (500 ML=1 UNIT) completed 12/19/13 ROUTINE [...] ADDON completed 01/19/14 TX/PRO/DX INJ SAME DRUG CUT OFF SAW SET UP OPERATOR completed 01/19/14 EMERGENCY DEPT VISIT completed 01/19/14497369"INJECTION, CEFTRIAXONE SODIUM, PER 250 MG" completed 01/19/14537334"INJECTION, HYDROMORPHONE, UP TO 4 MG" completed 01/19/14898620"INJECTION, HYDROMORPHONE, UP TO 4 MG" completed 01/19/14356232"INJECTION, HEPARIN SODIUM, (HEPARIN LOCK FLUSH), PER completed 003"INFUSION, NORMAL SALINE SOLUTION , 250 CC" completed 01/19/14 REPLACE PICC CATH completed 02/12/14 JOSE KARIMI MD CHANGE OF BLADDER TUBE completed 02/12/14 NAHID DIETZ MD FLUOROGUIDE FOR VEIN DEVICE completed 02/12/14126317TQQSG WIRE completed 02/12/14069630"INJECTION, CEFTRIAXONE SODIUM, PER 250 MG" completed 02/12/14963109"INJECTION, HEPARIN SODIUM, (HEPARIN LOCK FLUSH), PER completed 003"INJECTION, MEPERIDINE HYDROCHLORIDE, PER 100 MG" completed 02/12/14300314"INJECTION, MEPERIDINE HYDROCHLORIDE, PER 100 MG" completed 02/12/14"INJECTION, ONDANSETRON HYDROCHLORIDE, PER 1 MG" completed 02/12/14 PROPOFOL INJ 500 MG/50ML completed 02/12/14"INJECTION, FENTANYL CITRATE, 0.1 MG" completed 02/12/14225934"INFUSION, NORMAL SALINE SOLUTION , 250 CC" completed 02/12/14 OFFICE/OUTPATIENT VISIT EST completed 02/28/14 ROUTINE VENIPUNCTURE completed 03/02/14 COMPREHEN METABOLIC PANEL completed 03/02/14 ASSAY OF LACTIC ACID completed 03/02/14 PROCALCITONIN (PCT) completed 03/02/14 COMPLETE CBC W/AUTO DIFF WBC completed 03/02/14 Encounters Encounter Location Date/Time Registered [facility] 03/09/14 3:01pm Discharged [facility] 03/04/14 1:00pm Registered Clinic [facility] 03/02/14 6:09pm Registered [facility] 02/28/14 12:44pm Discharged [facility] 01/20/14 2:53pm Departed Emergency Room [facility] 01/19/14 6:35pm Departed Emergency Room [facility] 12/19/13 7:07pm
== END 2016-04-25 13:18 | disposition home or self-care (01) ==
LOC: ED 11:43
DX: L08.9 Local infection of the skin and subcutaneous tissue, unspecified (principal); B95.8 Unspecified staphylococcus as the cause of diseases classified elsewhere
CPT/HCPCS: 96372; 99284; J1170; J2550

== ENCOUNTER → 2016-05-20 | Outpatient (CLI) | payer MEDICAID ==
[~2016-05-20] MED LIST changes: -ALPR2TAB7 PO; +GABA-305 PO; -GABA-329 PO; +MUPI15CR12 TOP; +OXYC1TAB8 PO; -QUET200T58 PO; +QUET300T44 PO
--- NOTE | 2016-05-21 09:27 | DI ---
INDICATION: ITS.REASON: J20.8 ACUTE BRONCHITIS PROCEDURE: CHEST 2-VIEWS UPRIGHT (PA \T\ LAT) Encounter: Initial COMPARISON: February 21, 2015 FINDINGS: Chronically elevated right hemidiaphragm. No focal consolidative pneumonia, gross pleural effusion or pneumothorax. Heart size and mediastinal contours are stable. Pulmonary vascularity appears normal. Metallic foreign bodies in the neck soft tissues. Chronic deformity of the right shoulder. Electronic device projecting over the left upper back. Impression: No acute pneumonia seen. .
== END ==
LOC: IMA 17:34
PROVIDERS: ATTEND Internal Medicine
DX: J20.8 Acute bronchitis due to other specified organisms (principal)

== ENCOUNTER 2016-07-17 11:21 | Inpatient (IN) ==
[2016-07-17] MEDS ORDERED: NS 1,000 ML IV ONE (12:46)
--- NOTE | 2016-07-17 12:50 | Emergency Department Report ---
Overdose HPI - General Chief Complaint: Abdominal Pain Stated Complaint: poss od of bp med Time Seen by Provider: 07/17/16 12:50 Source: patient Mode of arrival: wheelchair Limitations: no limitations - History of Present Illness HPI Narrative: 45yo man presents to the ER today for evaluation of his BENITEZ and ABD pain. Pt was seen by his PCM earlier today and referred to the ER for concerns for clonidine and metoprolol overdose. Pt has had abd pain for the last several weeks. Pt feels like he needs to move his bowels, but has been unsuccessful. Pt was seeing his PCM today to address the BENITEZ and Abd pain. He is most upset that his PCM focused on the meds and didn' t address the BENITEZ/abd pain. Pt has a h/o BENITEZ with elevated BPs. Pt took his usual AM dose of clonidine and metoprolol today, but had elevated BP and BENITEZ. He took a second dose of each, without significant relief of sx. complaint: other Onset (ago): hour(s) (5) Timing confirmed by: unconfirmed Intent: other (Attempt to decrease BP) Context: Accidental Overdose: other (Was trying to normalize HTN) Treatments Prior to Arrival: none - Related Data Home Medications Medication Instructions Recorded Confirmed cloNIDine HCl [Clonidine HCl] 0.2 mg PO TID #0 01/19/14 07/17/16 diazePAM [Valium] 10 mg PO BID #0 01/19/14 07/17/16 Tramadol HCl 50 mg PO TID PRN #0 02/12/14 07/17/16 Metoprolol Tartrate 50 mg PO BIDWM #0 05/07/14 07/17/16 Baclofen [Lioresal] 10 mg PO TID 07/10/16 07/17/16 Gabapentin [Neurontin] 600 mg PO TID 07/10/16 07/17/16 Hydrocodone/APAP 10/325 [[facility] 2 tab PO BID 07/10/16 07/17/16 10/325] LIDOCAINE 1% 10ml INJ [Xylocaine 100 mg IM DAILY 07/17/16 07/17/16 1%] Previous Rx's Medication Instructions Recorded Ceftriaxone [Rocephin] 1 gm IM DAILY #9 vial 07/10/16 Dicyclomine HCl [Bentyl] 10 mg PO TID PRN #12 capsule 06/02/17 Allergies Allergy/AdvReac Type Severity Reaction Status Date / Time morphine Allergy Severe swelling Verified 07/17/16 11:48 of face Review of Systems All systems: reviewed and negative except as stated Cardiovascular: Reports: other (HTN) Gastrointestinal: Reports: abdominal pain Neurological: Reports: headache PFSH Patient Stated Medical History Hypertension Yes Myocardial Infarction Yes Other Cardiology Yes: DVT Other Respiratory Yes: Partial Right Lung Paralysis Hx Urinary Tract Infection Yes: Chronic [place] Clotting Problems Yes: Hx of blood clots Osteoarthritis Yes: all joints Other Musculoskeletal Yes: chronic R shoulder dislocations Gonorrhea Yes Depression Yes Surgical History: Cervical neck vertebral stabilization - Social History Smoking status: Current every day smoker Physical Exam - Limitations Limitations: no limitations - General General appearance: alert, in no apparent distress - Normal Exams: Head:: Normocephalic without trauma Eyes:: Pupils are PERRLA w/ EOMI, No scleral icterus, irritation ENMT:: No facial trauma, nasal exudates, pharyngeal erythema Neck:: Full range of motion, without adenopathy, JVD Chest/Respirations:: Clear all mace, with good airflow, and symmetry bilaterally Cardiovascular:: Regular rate and rhythm, without murmur or gallop, Pulses 2+ all extremities Abdomen:: Bowel sounds positive, soft, non-tender, non-distended Lymphatic:: No lymphadenopathy Integumentary:: No rashes, hives, or bruising noted Neurological:: Patient is alert, and oriented Psychiatric:: Patient exhibits, appropriate attention - Extremities Exam Extremities exam: Present: other (Contractures) Course Course Narrative: Pt with numerous comorbidities related to both his age and his status as a partial quadraplegic. Unable to control pts HTN with PO/IM meds. Unable to obtain IV access in ER. Discussed case with hospitalist along with options. Will admit pt to unit for further eval/treatment. Requests placement of PICC prior to txfr; able to have 'med line' inserted (no PICC availability at this time). Will accept for txfr. - Consultations Consultation #1: Dr. Jacob: Pt presented to clinic today - states that he has been taking 2 days or 4 days worth of his metoprolol and clonidine for BENITEZ. Unable to get a consistent hx from pt. Consultation #2: Poison control: Clonidine is fast-acting; if pt took a toxic dose, would be apparent within 1hr of ingestion. Consider narcan if he is hypotensive. For Metoprolol, pt will need to be monitored for 6hrs from ingestion. Assuming ingestion of 0800, only one more hour to observe. Time: 12:40 Consultation #3: [id number] Hospitalist: Dr. Alcantara will admit to unit. Requests PICC line prior to admission to unit. Time: 15:38 Vital Signs Pulse Rate 70 07/17/16 11:36 Pulse Oximetry 95 07/17/16 11:36 Temperature 96.5 F L 07/20/16 08:24 Pulse Rate 87 07/20/16 08:24 Respiratory Rate 20 07/20/16 08:24 Blood Pressure 92/68 07/20/16 08:24 Pulse Oximetry 99 07/20/16 08:24 Overdose - Differential Diagnosis Likely: drug overdose (Hypertension), acetaminophen overdose, accidental drug ingestion - Medical Records Attestation: I reviewed the patient's medical records. - Lab Data Attestation: I reviewed the patient's lab results. Result diagrams: 07/18/16 05:30 07/20/16 04:16 Lab Results 07/17/16 07/17/16 07/17/16 Range/Units 13:20 13:20 13:53 WBC 7.0 (4.5-11.0) T/MM3 RBC 5.75 (4.50-5.90) M/MM3 Hgb 16.2 (13.5-17.5) GM/DL Hct 50.6 (41-53) % MCV 88.0 (80-100) UM3 MCH 28.2 (26-34) UUG MCHC 32.0 (31-37) GM/DL RDW Std Deviation 44.2 (36.9-50.2) FL Plt Count 211 (130-400) T/MM3 MPV 10.1 (9.4-12.4) UM3 Immature Gran % (Auto) 0.0 (0.0-0.5) % Neut % (Auto) 45.2 (33-66) % Lymph % (Auto) 41.4 (23-45) % [place] % (Auto) 11.2 H (0-9.0) % Eos % (Auto) 1.6 (0-4) % Baso % (Auto) 0.6 (0-2) % Neut # 3.2 (1.8-7.7) T/MM3 Lymph # 2.9 (1-4.8) T/MM3 Swift # 0.8 (0-0.8) T/MM3 Eos # 0.1 (0-0.5) T/MM3 Baso # 0.0 (0-0.2) T/MM3 Abs Immat Gran (auto) 0.00 (0.00-0.03) T/MM3 Turbidity < 20.0 (0-20) Sodium 146 H (134-144) MEQ/L Potassium 4.3 (3.6-5) MEQ/L Chloride 104 (98-107) MEQ/L Carbon Dioxide 31 H (22-30) MEQ/L Anion Gap 11 (5-15) MEQ/L BUN 15.0 (9-20) MG/DL Creatinine 0.6 L (0.8-1.5) MG/DL GFR Calculation 147 BUN/Creatinine Ratio 25 (6-26) RATIO Glucose 82 (75-110) MG/DL Calculated Osmolality 281 H (261-280) MOSM/KG Calcium 9.5 (8.4-10.2) MG/DL Total Bilirubin 0.30 (0.20-1.30) MG/DL Icterus Index < 2.0 (0-7) AST 21 (17-59) U/L ALT 33 (21-72) U/L Alkaline Phosphatase 95 (38-126) U/L Total Protein 6.9 (6.3-8.2) G/DL Albumin 3.8 (3.5-5.0) G/DL Globulin 3.1 (2.4-3.6) G/DL Albumin/Globulin Ratio 1.2 (1.1-2.2) RATIO Specimen Hemolysis < 15.0 (0-25) Ur Collection Type Urine, clean catch Urine Color Yellow (YELLOW) Urine Clarity Cloudy Urine pH 5.5 (5.0-8.0) Ur Specific [place] 1.015 (1.015-1.025) Urine Protein Negative (NEGATIVE) Urine Glucose (UA) Negative (NEGATIVE) Urine Ketones Negative (NEGATIVE) Urine Occult Blood 3+ A (NEGATIVE) Urine Nitrate Positive A (NEGATIVE) Urine Bilirubin Negative (NEGATIVE) Urine Urobilinogen 0.2 (NORMAL) EU/DL Ur Leukocyte Esterase 1+ A (NEGATIVE) Urine RBC 3-5 H (0-3) /HPF Urine WBC 10-20 H (0-5) /HPF Urine WBC Clumps Few Ur Squamous Epith Cells 0-5 Amorphous Sediment Few Urine Bacteria 3+ H (NEGATIVE) Urine Mucus Present Ur Culture Indicated? Cancelled Urinalysis Comment Cancelled Salicylates 14.7 (2-20) MG/DL Urine Opiates Screen ng/mL Ur Oxycodone Screen ng/mL Urine Methadone Screen ng/mL Ur Propoxyphene Screen ng/mL Acetaminophen 12 Ur Barbiturates Screen ng/mL U Tricyclic Antidepress ng/mL Ur Phencyclidine Scrn ng/mL Ur Amphetamines Screen ng/mL U Methamphetamines Scrn ng/mL U Benzodiazepines Scrn ng/mL Urine Cocaine Screen ng/mL U Cannabinoids Screen ng/mL Ur Drug Screen Confirm Ethyl Alcohol < 10 07/17/16 07/17/16 Range/Units 13:53 13:53 WBC (4.5-11.0) T/MM3 RBC (4.50-5.90) M/MM3 Hgb (13.5-17.5) GM/DL Hct (41-53) % MCV (80-100) UM3 MCH (26-34) UUG MCHC (31-37) GM/DL RDW Std Deviation (36.9-50.2) FL Plt Count (130-400) T/MM3 MPV (9.4-12.4) UM3 Immature Gran % (Auto) (0.0-0.5) % Neut % (Auto) (33-66) % Lymph % (Auto) (23-45) % Swift % (Auto) (0-9.0) % Eos % (Auto) (0-4) % Baso % (Auto) (0-2) % Neut # (1.8-7.7) T/MM3 Lymph # (1-4.8) T/MM3 Swift # (0-0.8) T/MM3 Eos # (0-0.5) T/MM3 Baso # (0-0.2) T/MM3 Abs Immat Gran (auto) (0.00-0.03) T/MM3 Turbidity (0-20) Sodium (134-144) MEQ/L Potassium (3.6-5) MEQ/L Chloride (98-107) MEQ/L Carbon Dioxide (22-30) MEQ/L Anion Gap (5-15) MEQ/L BUN (9-20) MG/DL Creatinine (0.8-1.5) MG/DL GFR Calculation BUN/Creatinine Ratio (6-26) RATIO Glucose (75-110) MG/DL Calculated Osmolality (261-280) MOSM/KG Calcium (8.4-10.2) MG/DL Total Bilirubin (0.20-1.30) MG/DL Icterus Index (0-7) AST (17-59) U/L ALT (21-72) U/L Alkaline Phosphatase (38-126) U/L Total Protein (6.3-8.2) G/DL Albumin (3.5-5.0) G/DL Globulin (2.4-3.6) G/DL Albumin/Globulin Ratio (1.1-2.2) RATIO Specimen Hemolysis (0-25) Ur Collection Type Urine Color (YELLOW) Urine Clarity Urine pH (5.0-8.0) Ur Specific [place] (1.015-1.025) Urine Protein (NEGATIVE) Urine Glucose (UA) (NEGATIVE) Urine Ketones (NEGATIVE) Urine Occult Blood (NEGATIVE) Urine Nitrate (NEGATIVE) Urine Bilirubin (NEGATIVE) Urine Urobilinogen (NORMAL) EU/DL Ur Leukocyte Esterase (NEGATIVE) Urine RBC (0-3) /HPF Urine WBC (0-5) /HPF Urine WBC Clumps Ur Squamous Epith Cells Amorphous Sediment Urine Bacteria (NEGATIVE) Urine Mucus Ur Culture Indicated? Urinalysis Comment Salicylates (2-20) MG/DL Urine Opiates Screen Positive ng/mL Ur Oxycodone Screen Negative ng/mL Urine Methadone Screen Negative ng/mL Ur Propoxyphene Screen Negative ng/mL Acetaminophen Ur Barbiturates Screen Negative ng/mL U Tricyclic Antidepress Negative ng/mL Ur Phencyclidine Scrn Negative ng/mL Ur Amphetamines Screen Negative ng/mL U Methamphetamines Scrn Negative ng/mL U Benzodiazepines Scrn Positive ng/mL Urine Cocaine Screen Negative ng/mL U Cannabinoids Screen Positive ng/mL Ur Drug Screen Confirm Sent out Ethyl Alcohol - Radiology Data Attestation: I reviewed the patient's radiology results. Head CT: No acute pathology CXR: Hypoinflation without acute cardiopulmonary disease. Disposition Clinical Impression: Hypertension Qualifiers: Hypertension type: essential hypertension Qualified Code(s): I10 - Essential ( primary) hypertension Headache Qualifiers: Headache type: other headache syndrome Qualified Code(s): G44.89 - Other headache syndrome Constipation Qualifiers: Constipation type: drug induced constipation Qualified Code(s): K59.03 - Drug induced constipation Disposition: 02 To [facility] Acute Care Condition: Improved Time of Disposition: 16:03 - Seen By: physician
[2016-07-17] MEDS ORDERED: HYDRALAZINE 20 MG/ML INJECTION IM ONE (13:03)
--- NOTE | 2016-07-17 13:44 | CT Scan Report ---
Indication: Headache PROCEDURE: CT head/brain wo con: Encounter: Initial Comparison: Head CT dated August 26, 2014 Technique: Axial CT images through the head were performed without contrast. Iterative Reconstruction dose reducing technique was utilized. FINDINGS: The ventricles are of normal size, shape, and configuration for the patient's age. There is no evidence of acute intracranial hemorrhage, midline displacement, or mass effect. The CT attenuation of the brain parenchyma is normal within the cerebellum, brain stem, and cerebral hemispheres. The tympanic cavities and mastoid air cells are free of appreciable disease. There are no definite fractures of the skull base, calvarium, or visualized portion of the midface. IMPRESSION: No CT evidence of acute intracranial abnormality. .
--- NOTE | 2016-07-17 14:09 | XRay Report ---
Indication: OD PROCEDURE: XR chest 1V: Encounter: Initial Comparison: May 20, 2016 Findings: Lungs are hypoinflated. Elevated right hemidiaphragm. No focal consolidative pneumonia. No pleural effusion or pneumothorax. Heart size and mediastinal contours are stable. Pulmonary vascularity is unchanged. Metallic foreign bodies in the right neck. Deformity of the right humeral head and left proximal humerus. Impression: Hypoinflation without acute cardiopulmonary disease. .
[2016-07-17] MEDS ORDERED: HYDROCODONE/APAP 7.5 MG/325 MG TABLET PO ONE (15:44)
[2016-07-17] MEDS ORDERED: DICYCLOMINE 20mg TABLET PO ONE (15:45)
[2016-07-17] MEDS ORDERED: ONDANSETRON 4 MG/2 ML INJECTION IVP ONE (16:32)
[2016-07-17] MEDS ORDERED: FentaNYL 100 MCG/2 ML INJECTION IVP ONE (16:32)
[2016-07-17] MEDS: SALINE FLUSH 10ml SYRINGE IVF PRN (16:36)
[2016-07-17] MEDS ORDERED: NICARDIPINE 50 MG in NS 500ml 500 ML IV PRN (18:58)
[2016-07-17] MEDS ORDERED: TRAMADOL 50 MG TABLET PO PRN (19:57)
[2016-07-17] MEDS ORDERED: DICYCLOMINE 10mg CAPSULE PO PRN (19:57)
[2016-07-17] MEDS ORDERED: METOCLOPRAMIDE 10mg/2ml INJECTION IVP PRN (20:00)
[2016-07-17] MEDS: ONDANSETRON 4 MG/2 ML INJECTION IVP PRN (20:30)
[2016-07-17] MEDS: HYDROMORPHONE 2 MG/ML INJECTION IVP PRN (20:31)
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
[2016-07-17] MEDS ORDERED: LACTULOSE 20 GM/30 ML ORAL LIQUID PO PRN (21:07)
[2016-07-17] MEDS ORDERED: HYDRALAZINE 20 MG/ML INJECTION IVP PRN (21:22)
[2016-07-17] MEDS: GABAPENTIN 600 MG TABLET PO SCH (21:43)
[2016-07-17] MEDS: BACLOFEN 10 MG TABLET PO SCH (21:43)
[2016-07-17] MEDS: HYDROCODONE/APAP 10 MG/325 MG TABLET PO SCH (21:51)
[2016-07-17] MEDS: SENNA + DOCUSATE TABLET PO SCH (22:01)
[2016-07-18] MEDS: HYDROMORPHONE 2 MG/ML INJECTION IVP PRN ×7 (00:07→23:44)
[2016-07-18] MEDS: FLEET PHOSPHO - SODA ENEMA 133ml PR PRN (01:45)
[2016-07-18] MEDS: ONDANSETRON 4 MG/2 ML INJECTION IVP PRN ×3 (03:07→23:44)
[2016-07-18] MEDS ORDERED: DICYCLOMINE 10mg CAPSULE PO PRN (07:45)
[2016-07-18] MEDS: DIAZEPAM 5 MG TABLET PO SCH ×3 (08:44→20:50)
[2016-07-18] MEDS: HYDROCODONE/APAP 10 MG/325 MG TABLET PO SCH ×4 (08:46→23:45)
[2016-07-18] MEDS: ENOXAPARIN 40 MG/0.4 ML INJECTION SQ SCH (08:46)
[2016-07-18] MEDS: SENNA + DOCUSATE TABLET PO SCH ×2 (08:46→20:51)
[2016-07-18] MEDS: GABAPENTIN 600 MG TABLET PO SCH ×3 (08:46→20:50)
[2016-07-18] MEDS: BACLOFEN 10 MG TABLET PO SCH ×3 (08:46→20:50)
[2016-07-18] MEDS ORDERED: HYDRALAZINE 20 MG/ML INJECTION IVP PRN (11:40)
--- NOTE | 2016-07-18 12:54 | Progress Note ---
Subjective: Mr. Stovall continues to complain of global headache although reports it is better. Headache will break for about 20 minutes after a dose of Dilaudid. Blood pressure control improved significantly overnight such that nicardipine drip was discontinued this morning. Nursing has noted that blood pressure goes up when his headache worsens and improves following Dilaudid administration. Patient denies other concerns including nausea today. His appetite was good this morning and he denied dyspnea. Had a large bowel movement yesterday evening and does not feel that constipation is a current concern. He denied change in chronic neurological deficits and is using his left arm in usual manner. Objective Vital signs: Temp Pulse Resp BP Pulse Ox 98.6 F 95 14 152/83 H 90 07/18/16 12:34 07/18/16 12:34 07/18/16 12:34 07/18/16 12:34 07/18/16 12:34 EXAM General-NAD, alert, cooperative HEENT-conjugate gaze, pupils round, EOMI Lungs-respirations nonlabored with good airflow, breath sounds clear anteriorly Cardiac-regular rhythm, S1 and S2 with soft systolic murmur Abd-soft, mild generalized tenderness without guarding, bowel sounds present, Ext-without edema, muscle wasting bilateral lower extremities; flexion contractures of fingers bilaterally Neuro-right hemiparesis with incomplete left hemiparesis Psych-calm, pleasant - Weight: 60.9 kg Results - Labs CBC & Chem 7: 07/18/16 05:30 07/18/16 05:30 Labs: Urine culture >100,000 colonies gram-negative rods Assessment and Plan (1) Hypertensive urgency Current visit: Yes Status: Acute (2) Headache Current visit: Yes Status: Acute (3) Caffeine dependence Current visit: Yes Status: Acute (4) Quadriplegia following spinal cord injury Current visit: Yes Status: Acute (5) Neurogenic bladder Current visit: Yes Status: Chronic (6) Neurogenic bowel Current visit: Yes Status: Chronic (7) Constipation Current visit: Yes Status: Chronic (8) Nausea Current visit: Yes Status: Acute (9) Bacteriuria with pyuria Current visit: Yes Status: Chronic Chronic [place] 07/18/16 13:06 Assessment and Plan: Clinically improved with residual headache, patient advised he'll likely need some caffeine and taper off to blunt withdrawal headache. Blood pressure improved, off nicardipine drip since early this morning. IV hydralazine available prn if systolic BP > 190. Nursing notes clear correlation with pain and blood pressure. [place] increased to 2 tablets every 6 hours from twice a day to improve basal pain control. Nausea has resolved, bowel movement yesterday evening. Patient advised may need more aggressive bowel regimen with increased narcotic use. Urine culture positive gram-negative rods but no indication of active infection , consistent with chronic colonization-no indication for treatment. Anticipate transfer out of ICU later today provided remains off nicardipine drip. Discussed with nursing provide supplemental history, laboratory data reviewed, telemetry reviewed by myself-sinus rhythm/sinus tachycardia. Sepsis Assessment - Evaluation Sepsis screening result: No Definite Risk - Focused Exam Vital Signs Temp Pulse Resp BP Pulse Ox 07/18/16 12:34 98.6 F 95 14 152/83 H 90 07/18/16 11:08 107 H 22 143/93 H 96 07/18/16 08:00 100 07/18/16 07:00 97.9 F 07/18/16 05:00 97.3 F 07/18/16 04:00 76 2 L 122/87 92 07/18/16 03:00 71 22 98 07/18/16 02:00 81 22 98 07/18/16 01:00 73 28 H 101/77 84 L Capillary refill: < 2-3 Seconds Hospital Course Summary Disclaimer: The visit summary below is not to be considered part of the above Progress Note. Hospital Course: 07/17/16 Mr. Stovall is admitted to the intensive care unit with persistent uncontrolled blood pressures. This is accompanied by uncontrolled headache, nausea, and microscopic hematuria. Nicardipine drip to be initiated. Continue home medications for blood pressure. May require addition of third agent chronically for at least short-term. Resume home medications for chronic pain/spasticity. IV Dilaudid added for headache-likely caffeine withdrawal. Zofran as needed for nausea. Bowel regimen initiated with lactulose, enemas, and Senokot per patient described home regimen. Pyuria present but no indication of active infection. 07/18/16 13:05 Clinically improved with residual headache, patient advised he'll likely need some caffeine and taper off to blunt withdrawal headache. Blood pressure improved, off nicardipine drip since early this morning. IV hydralazine available prn if systolic BP > 190. Nursing notes clear correlation with pain and blood pressure. [place] increased to 2 tablets every 6 hours from twice a day to improve basal pain control. Nausea has resolved, bowel movement yesterday evening. Urine culture positive gram-negative rods but no indication of active infection , consistent with chronic colonization-no indication for treatment. Patient advised may need more aggressive bowel regimen with increased narcotic use. Anticipate transfer out of ICU later today provided remains off nicardipine drip. 07/18/16 13:07
[2016-07-19] MEDS: HYDROMORPHONE 2 MG/ML INJECTION IVP PRN ×5 (04:00→22:01)
[2016-07-19] MEDS: HYDROCODONE/APAP 10 MG/325 MG TABLET PO SCH ×3 (05:13→17:54)
[2016-07-19] MEDS: BACLOFEN 10 MG TABLET PO SCH ×3 (07:59→22:04)
[2016-07-19] MEDS: GABAPENTIN 600 MG TABLET PO SCH ×3 (07:59→22:05)
[2016-07-19] MEDS: ENOXAPARIN 40 MG/0.4 ML INJECTION SQ SCH (07:59)
[2016-07-19] MEDS: SENNA + DOCUSATE TABLET PO SCH ×2 (08:00→22:04)
[2016-07-19] MEDS: DIAZEPAM 5 MG TABLET PO SCH ×2 (08:00→22:05)
[2016-07-19] MEDS: ONDANSETRON 4 MG/2 ML INJECTION IVP PRN ×2 (09:01→21:58)
--- NOTE | 2016-07-19 09:42 | Progress Note ---
<Emilie Shipley July - Last Filed: 07/19/16 09:38> Subjective: I received a phone call from Tristian's nurse stating that Tristian was complaining of palpitations. This was around 822 this morning. Telemetry showed sinus rhythm at a rate of 99. At around 9:15. She called any back stating that telemetry is now showing a junctional rhythm at a rate of 97. A stat EKG was done, confirming the junctional rhythm. The patient denied any chest pain or difficulty breathing. His headache has improved. He is drowsy, but awakens easily with verbal communication. He states that he saw stone chimney mason when he had a heart attack, but he can't remember the stone chimney mason's name. Objective Vital signs: Temp Pulse Resp BP Pulse Ox 96.8 F 74 14 124/81 100 07/19/16 04:00 07/19/16 04:00 07/19/16 04:00 07/19/16 04:00 07/19/16 04:00 Rhythm: Accelerated Junctional Rh Weight: 62.7 kg - Constitutional Present: no acute distress - Routine HEENT Exam Eye: Present: PERRL (pupils are pinpoint but equal bilaterally). Absent: conjunctival icterus, scleral injection ENT: Present: mucous membranes dry - Routine Respiratory Exam Present: CTA bilaterally - Routine Cardiovascular Exam Present: S1, S2, gallop, S3 - Routine Abdominal Exam Present: soft, normoactive bowel sounds (hypoactive), non distended, non tender - Routine Extremities Exam Present: no edema, pulses intact - Routine Musculoskeletal Exam Musculoskeletal: contractures (both hands, right elbow, right ankle) - Routine Skin Exam Present: intact, dry, warm - Routine Neurological Exam Present: oriented X3, motor deficit. Absent: alert (drowsy) - Routine Psychiatric Exam Present: normal affect Results - Labs CBC & Chem 7: 07/18/16 05:30 07/18/16 05:30 Assessment and Plan (1) Headache Current visit: Yes Status: Acute (2) Constipation Current visit: Yes Status: Chronic (3) Hypertensive urgency Current visit: Yes Status: Acute (4) Quadriplegia following spinal cord injury Current visit: Yes Status: Acute (5) Neurogenic bladder Current visit: Yes Status: Chronic (6) Neurogenic bowel Current visit: Yes Status: Chronic (7) Nausea Current visit: Yes Status: Acute (8) Caffeine dependence Current visit: Yes Status: Acute (9) Bacteriuria with pyuria Current visit: Yes Status: Chronic Chronic [place] 07/18/16 13:06 (10) Accelerated junctional rhythm Current visit: Yes Status: Acute Assessment and Plan: Accelerated junctional rhythm -EKG shows junctional rhythm at a rate of 95; no ST segment elevation or depression, Q waves in V3, V4, poor R-wave progression. -S3 gallop noted on exam today -serial troponin ordered, pending -consult Dr. Augustin - discussed with Ellen Keith APRN - she will see the patient shortly -Echocardiogram was done 08/28/14 showing an EF of 64%, LV hypertrophy, trace tricuspid regurgitation Hypertensive urgency -Improved, blood pressure 124/81 this morning -Headache, improving Labs reviewed -Hypernatremia has resolved -CBC stable -Urine culture-Pseudomonas aeruginosa, suspect colonization rather than acute UTI given lack of systemic symptoms Discussed with nursing, Dr. Alcantara, and cardiology Sepsis Assessment - Evaluation Sepsis screening result: No Definite Risk - Focused Exam Vital Signs Temp Pulse Resp BP Pulse Ox 07/19/16 04:00 96.8 F 74 14 124/81 100 07/19/16 00:00 97.1 F 83 16 96/65 97 Capillary refill: < 2-3 Seconds Hospital Course Summary Disclaimer: The visit summary below is not to be considered part of the above Progress Note. Hospital Course: 07/17/16 Mr. Stovall is admitted to the intensive care unit with persistent uncontrolled blood pressures. This is accompanied by uncontrolled headache, nausea, and microscopic hematuria. Nicardipine drip to be initiated. Continue home medications for blood pressure. May require addition of third agent chronically for at least short-term. Resume home medications for chronic pain/spasticity. IV Dilaudid added for headache-likely caffeine withdrawal. Zofran as needed for nausea. Bowel regimen initiated with lactulose, enemas, and Senokot per patient described home regimen. Pyuria present but no indication of active infection. 07/18/16 13:05 Clinically improved with residual headache, patient advised he'll likely need some caffeine and taper off to blunt withdrawal headache. Blood pressure improved, off nicardipine drip since early this morning. IV hydralazine available prn if systolic BP > 190. Nursing notes clear correlation with pain and blood pressure. [place] increased to 2 tablets every 6 hours from twice a day to improve basal pain control. Nausea has resolved, bowel movement yesterday evening. Urine culture positive gram-negative rods but no indication of active infection , consistent with chronic colonization-no indication for treatment. Patient advised may need more aggressive bowel regimen with increased narcotic use. Anticipate transfer out of ICU later today provided remains off nicardipine drip. 07/19/16 09:55 Accelerated junctional rhythm -EKG shows junctional rhythm at a rate of 95; no ST segment elevation or depression, Q waves in V3, V4, poor R-wave progression. -S3 gallop noted on exam today -serial troponin ordered, pending -consult Dr. Augustin - discussed with Ellen Keith APRN - she will see the patient shortly -Echocardiogram was done 08/28/14 showing an EF of 64%, LV hypertrophy, trace tricuspid regurgitation Hypertensive urgency -Improved, blood pressure 124/81 this morning -Headache, improving Labs reviewed -Hypernatremia has resolved -CBC stable -Urine culture-Pseudomonas aeruginosa, suspect colonization rather than acute UTI given lack of systemic symptoms <Ruchi Alcantara - Last Filed: 07/19/16 16:41> Objective Vital signs: Temp Pulse Resp BP Pulse Ox 97.9 F 104 H 18 157/89 H 100 07/19/16 16:00 07/19/16 16:00 07/19/16 16:00 07/19/16 16:00 07/19/16 16:00 Results - Labs CBC & Chem 7: 07/18/16 05:30 07/18/16 05:30 Assessment and Plan (1) Ectopic atrial rhythm Problem details: with palpitations reported Current visit: Yes Status: Acute (2) Headache Current visit: Yes Status: Acute (3) Constipation Current visit: Yes Status: Chronic (4) Hypertensive urgency Current visit: Yes Status: Acute (5) Quadriplegia following spinal cord injury Current visit: Yes Status: Chronic (6) Neurogenic bladder Current visit: Yes Status: Chronic (7) Neurogenic bowel Current visit: Yes Status: Chronic (8) Nausea Current visit: Yes Status: Acute (9) Caffeine dependence Current visit: Yes Status: Acute (10) Bacteriuria with pyuria Current visit: Yes Status: Chronic Assessment and Plan: I have independently evaluated and examined this patient. I reviewed the chart, the patient's history, and the CNA CAREGIVER's documented findings as above. We discussed and formulated the assessment and plan as above with additions as below: Tristian reports that palpitations have subsided when seen late morning. His headache is much better but he complains of increased diffuse muscle pain which is chronic. Nursing reports excess somnolence after morning meds and that he continues to ask for IV narcotics at 3 hour intervals despite resolution of headache. The patient is alert and soft spoken when seen. Respirations are nonlabored. Cardiac rhythm regular, S1 and S2. Telemetry strips and EKG reviewed by myself and with Ellen Keith. Atrial activity is seen on the strips initially interpreted as junctional but VT interval is very short. This is more obvious on the 12-lead EKG and on the telemetry strips. Agree with interpretation of ectopic atrial rhythm. Patient is subsequently converted back to prior sinus rhythm although has had additional brief episodes of the ectopic rhythm. Second troponin is slightly elevated at 0.[address]/T-wave changes on twelve-lead. Echo scheduled for tomorrow. Midafternoon the patient asked to go outside; he was taken to a courtyard with nursing staff will reattempt to smoke. He subsequently left with family outside the ER exit to smoke. Patient has been advised of the nonsmoking hospital and that smoking is not beneficial while undergoing cardiac workup. Additionally he was advised that IV narcotics will be discontinued if he is leaving the floor unaccompanied. Given resolution of headache it's unclear that narcotics in excess of his usual home medications are needed at this point and I subsequently decreased Dilaudid dose from 1 mg to 0.5 mg every 3 hrs. Discussed with cardiology, multiple telemetry strip/EKG is reviewed by myself, laboratory data reviewed/ordered. Sepsis Assessment - Focused Exam Vital Signs Temp Pulse Resp BP Pulse Ox 07/19/16 16:00 97.9 F 104 H 18 157/89 H 100 07/19/16 12:00 96 07/19/16 11:37 96.9 F 97 14 120/77 07/19/16 09:15 97 07/19/16 08:00 98.7 F 96 16 126/82 100 Hospital Course Summary Disclaimer: The visit summary below is not to be considered part of the above Progress Note.
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
[2016-07-20] MEDS: SALINE FLUSH 10ml SYRINGE IVF PRN (01:14)
[2016-07-20] MEDS: HYDROCODONE/APAP 10 MG/325 MG TABLET PO SCH ×4 (02:07→21:40)
[2016-07-20] MEDS: ONDANSETRON 4 MG/2 ML INJECTION IVP PRN ×2 (05:47→15:25)
[2016-07-20] MEDS: HYDROMORPHONE 2 MG/ML INJECTION IVP PRN ×2 (05:50→15:16)
[2016-07-20] MEDS: BACLOFEN 10 MG TABLET PO SCH ×3 (09:47→21:11)
[2016-07-20] MEDS: SENNA + DOCUSATE TABLET PO SCH ×2 (09:47→21:10)
[2016-07-20] MEDS: GABAPENTIN 600 MG TABLET PO SCH ×3 (09:48→21:10)
[2016-07-20] MEDS: DIAZEPAM 5 MG TABLET PO SCH (09:48)
[2016-07-20] MEDS: ENOXAPARIN 40 MG/0.4 ML INJECTION SQ SCH (09:56)
--- NOTE | 2016-07-20 15:21 | Cardiology Progress Note ---
Subjective Principal diagnosis: ectopic atrial rhythm <Ellen Keith - 07/20/16 15:25> Interval history: Tristian is seen in his room on Medical, he awakens to questions. He denies chest pain or difficultly breathing. He denies feeling any palpitations today. <Ellen Keith - 07/20/16 20:24> Exam Vital signs: Temp Pulse Resp BP Pulse Ox 98.1 F 89 20 119/72 98 07/21/16 20:40 07/21/16 20:22 07/21/16 20:15 07/21/16 20:15 07/21/16 20:15 <Alvaro Augustin - 07/24/16 12:10> Temp Pulse Resp BP Pulse Ox 97.4 F 72 12 108/67 100 07/20/16 12:18 07/20/16 12:18 07/20/16 12:18 07/20/16 12:18 07/20/16 12:18 <Ellen Keith 07/20/16 15:25> - Constitutional no acute distress, well nourished, cooperative <Ellen Keith 07/20/16 15: 25> - Routine HEENT Exam ENT: Present: mucous membranes moist <Ellen Keith 07/20/16 15:25> - Routine Neck Exam Absent: JVD, carotid bruit <Ellen Keith 07/20/16 15:25> - Routine Chest/Breast/Axilla Exam Chest wall: Absent: tenderness <Ellen Keith 07/20/16 15:25> - Routine Respiratory Exam Present: CTA bilaterally. Absent: rales, wheezes <Ellen Keith 07/20/16 15:25> - Routine Cardiovascular Exam Present: RRR, S1, S2. Absent: murmur, JVD <Ellen Keith 07/20/16 15:25> - Routine Abdominal Exam Present: soft <Ellen Keith 07/20/16 15:25> - Routine Neurological Exam Present: alert, oriented X3 <Ellen Keith 07/20/16 15:25> - Routine Psychiatric Exam Present: normal affect, normal thought process <Ellen Keith 07/20/16 15: 25> Hospital Course Hospital course: Mr. Stovall is a 45 year old male <Alvaro Augustin - 07/24/16 12:10> 07/19/16 12:29 Ectopic atrial rhythm on EKG per Dr. Augustin. Patient reports "skipped beats" and his "heart racing." Check TSH and Electrolytes. Continue to monitor s/sx and telemetry. Get Echo in the morning. 07/20/16 Troponin elevated to 0.520 and trending down, last was 0.495, due to LVH. Echo with EF 74%, Mild TR and Mild MR. Plan left heart cath for tomorrow. Thank you for allowing us to participate in the care of this patient. <Ellen Keith - 07/20/16 20:24> Progress Note-A&P (1) Hypertension Problem details: Admitted with hypertensive urgency 3 days ago. B/P improved. Status: Chronic (2) Quadriplegia following spinal cord injury Status: Chronic (3) Ectopic atrial rhythm Problem details: with palpitations Status: Acute (4) Elevated troponin Status: Acute <Alvaro Augustin - 07/24/16 12:10> (1) Ectopic atrial rhythm Problem details: with palpitations Status: Acute (2) Hypertension Problem details: Admitted with hypertensive urgency 3 days ago. B/P improved. Status: Chronic (3) Quadriplegia following spinal cord injury Status: Chronic (4) Elevated troponin Status: Acute Assessment and plan: NPO after breakfast except medications. Consent for left heart cath with possible PCI. <Ellen Keith - 07/23/16 18:56> - Time Spent With Patient Total time spent is greater than 50% in coordination of care (as documented) at patient's floor/unit and/or counseling patient: <Alvaro Augustin - 07/24/16 12:10> Total time spent is greater than 50% in coordination of care (as documented) at patient's floor/unit and/or counseling patient: <Ellen Keith - 07/20/16 15:25> less than 15 minutes <Ellen Keith - 07/23/16 18:57> Sepsis Assessment - Evaluation Sepsis screening result: No Definite Risk <Ellen Keith 07/20/16 15:25> - Focused Exam Vital Signs Temp Pulse Resp BP Pulse Ox 07/20/16 12:18 97.4 F 72 12 108/67 100 07/20/16 09:43 86 100/68 07/20/16 08:53 96/67 07/20/16 08:24 96.5 F L 87 20 92/68 99 07/20/16 08:03 89 07/20/16 04:00 98.6 F 95 12 95/67 98 <Ellen Keith - 07/20/16 15:25> Respiratory exam: Present: CTA bilaterally <Ellen Keith - 07/20/16 15:25> Cardiovascular exam: Present: S1, S2, gallop, S3 <Ellen Keith 07/20/16 15 :25> Capillary refill: < 2-3 Seconds <Ellen Keith 07/20/16 15:25>
--- NOTE | 2016-07-20 16:12 | Discharge Summary ---
Discharge Plan - Med Rec/Dispo Hayley Instructions: Caffeine (By mouth) Prescriptions: New Aspirin Chewable [ASA] 81 mg PO DAILY #100 tab.chew Continue Tramadol HCl 50 mg PO TID PRN #0 PRN Reason: PAIN Baclofen [Lioresal] 10 mg PO TID Dicyclomine HCl [Bentyl] 10 mg PO TID PRN #12 capsule PRN Reason: Cramps cloNIDine HCl [Clonidine HCl] 0.2 mg PO TID #0 diazePAM [Valium] 10 mg PO BID #0 Metoprolol Tartrate 50 mg PO BIDWM #0 Hydrocodone/APAP 10/325 [Tow 10/325] 2 tab PO BID Gabapentin [Neurontin] 600 mg PO TID Discontinued Ceftriaxone [Rocephin] 1 gm IM DAILY #9 vial LIDOCAINE 1% 10ml INJ [Xylocaine 1%] 100 mg IM DAILY - Disposition 01 Discharged Home, Self-Care
--- NOTE | 2016-07-20 16:35 | Echocardiogram ---
DATE OF PROCEDURE July 20, 2016 This is a two-dimensional echo with spectral Doppler, color-flow and M-mode. It was obtained in a patient with palpitations. Left atrial dimension is normal. Left ventricular end-diastolic dimension is normal. Left ventricular wall thickness is increased. LV systolic function is normal with ejection fraction of 74%. Right atrium is normal. Right ventricle is normal. Aortic root dimension is normal. Mitral, aortic, tricuspid, pulmonary valves are morphologically normal with mild mitral regurgitation and mild tricuspid regurgitation with normal estimated pulmonary artery systolic pressure of 18. There is no pericardial effusion. IMPRESSION 1. Normal LV systolic function with ejection fraction of 74%. 2. Concentric left ventricular hypertrophy. 3. Mild mitral regurgitation. 4. Mild tricuspid regurgitation with normal estimated pulmonary artery systolic pressure of 18. MTDD
--- NOTE | 2016-07-20 19:57 | Progress Note ---
Subjective: Tristian complained of a mild headache when seen this morning. He denied dyspnea, chest pain, palpitations, nausea, or vomiting. He continues to require narcotics frequently due to his chronic pain but indicated that it's not any different than normal. Patient's blood pressure was low overnight requiring fluid bolus. Objective Vital signs: Temp Pulse Resp BP Pulse Ox 95.8 F L 67 18 120/85 100 07/20/16 16:05 07/20/16 16:05 07/20/16 16:05 07/20/16 17:40 07/20/16 16:05 EXAM General-NAD, alert, soft-spoken Lungs-respirations nonlabored, diminished breath sounds especially in the right lower anterior field, breath sounds clear Cardiac-regular rhythm, S1-S2 Abd-soft, nontender, mild distention Ext-without edema, lower extremities atrophied Neuro-right hemiparesis, incomplete left hemiparesis with spastic use left upper extremity and minimal use left lower extremity Psych-calm, cooperative - Weight: 67.9 kg - Constitutional Present: no acute distress, well nourished, cooperative Results - Labs CBC & Chem 7: 07/18/16 05:30 07/20/16 04:16 Labs: Troponin yesterday evening 0.52, 0.495 this morning. - ECG Data Tracing #2 Today's EKG demonstrates sinus rhythm with normal NE interval, old anterior AZ, old inferior AZ probable, and subtle ST elevation with T wave inversion in the anteroseptal leads. 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 Using limited Dr. Interiano for alternate caffeine source. Transient hypotension overnight requiring IV fluids, pressure dropped after troponin elevation reported. Cardiac rhythm has largely remained sinus although review of telemetry strips demonstrates occasional brief episodes of ectopic atrial focus. Discussed with cardiology-echo with LVH and normal ejection fraction. Given past history of coronary disease and above symptoms will proceed with cardiac catheterization tomorrow to better define current cardiac pathology. Continue to taper IV narcotics given improvement in headache/blood pressure. EKG/telemetry reviewed by myself, discussed with Dr. Augustin and Ellen, discussed with case management; labs reviewed and supplemental studies ordered. Disregard sepsis exam appearing below-autopopulating due to EMR error Sepsis Assessment - Evaluation Sepsis screening result: No Definite Risk - Focused Exam Vital Signs Temp Pulse Resp BP Pulse Ox 07/20/16 17:40 120/85 07/20/16 16:05 95.8 F L 67 18 113/69 100 07/20/16 12:18 97.4 F 72 12 108/67 100 07/20/16 09:43 86 100/68 07/20/16 08:53 96/67 07/20/16 08:24 96.5 F L 87 20 92/68 99 07/20/16 08:03 89 Respiratory exam: Present: CTA bilaterally Cardiovascular exam: Present: S1, S2, gallop, S3 Capillary refill: < 2-3 Seconds Hospital Course Summary Disclaimer: The visit summary below is not to be considered part of the above Progress Note. Hospital Course: 07/19/16 12:29 Ectopic atrial rhythm on EKG per Dr. Augustin. Patient reports "skipped beats" and his "heart racing." Check TSH and Electrolytes. Continue to monitor s/sx and telemetry. Get Echo in the morning. 07/20/16 Troponin elevated to 0.520 and trending down, last was 0.495, due to LVH. Echo with EF 74%, Mild TR and Mild MR. Thank you for allowing us to participate in the care of this patient. 07/17/16 Mr. Stovall is admitted to the intensive care unit with persistent uncontrolled blood pressures. This is accompanied by uncontrolled headache, nausea, and microscopic hematuria. Nicardipine drip to be initiated. Continue home medications for blood pressure. May require addition of third agent chronically for at least short-term. Resume home medications for chronic pain/spasticity. IV Dilaudid added for headache-likely caffeine withdrawal. Zofran as needed for nausea. Bowel regimen initiated with lactulose, enemas, and Senokot per patient described home regimen. Pyuria present but no indication of active infection. 07/18/16 13:05 Clinically improved with residual headache, patient advised he'll likely need some caffeine and taper off to blunt withdrawal headache. Blood pressure improved, off nicardipine drip since early this morning. IV hydralazine available prn if systolic BP > 190. Nursing notes clear correlation with pain and blood pressure. [place] increased to 2 tablets every 6 hours from twice a day to improve basal pain control. Nausea has resolved, bowel movement yesterday evening. Urine culture positive gram-negative rods but no indication of active infection , consistent with chronic colonization-no indication for treatment. Patient advised may need more aggressive bowel regimen with increased narcotic use. Anticipate transfer out of ICU later today provided remains off nicardipine drip. 07/19/16 09:55 Accelerated junctional rhythm -EKG shows junctional rhythm at a rate of 95; no ST segment elevation or depression, Q waves in V3, V4, poor R-wave progression. -S3 gallop noted on exam today -serial troponin ordered, pending -consult Dr. Augustin - discussed with Ellen Keith APRN - she will see the patient shortly -Echocardiogram was done 08/28/14 showing an EF of 64%, LV hypertrophy, trace tricuspid regurgitation Hypertensive urgency -Improved, blood pressure 124/81 this morning -Headache, improving Labs reviewed -Hypernatremia has resolved 07/20/16 20:06 Headache continues to improve. Using limited Dr. Interiano for alternate caffeine source. Transient hypotension overnight requiring IV fluids, pressure dropped after troponin elevation reported. Cardiac rhythm has largely remained sinus although review of telemetry strips demonstrates occasional brief episodes of ectopic atrial focus. Discussed with cardiology-echo with LVH and normal ejection fraction. Given past history of coronary disease and above symptoms will proceed with cardiac catheterization tomorrow to better define current cardiac pathology. Continue to taper IV narcotics given improvement in headache/blood pressure.
[2016-07-21] MEDS: DIAZEPAM 5 MG TABLET PO SCH ×2 (01:13→09:13)
[2016-07-21] MEDS: HYDROCODONE/APAP 10 MG/325 MG TABLET PO SCH ×3 (03:11→17:19)
[2016-07-21] MEDS: ONDANSETRON 4 MG/2 ML INJECTION IVP PRN (03:12)
[2016-07-21] MEDS: HYDRALAZINE 20 MG/ML INJECTION IVP PRN ×2 (04:13→12:08)
[2016-07-21] MEDS: HYDROMORPHONE 2 MG/ML INJECTION IVP PRN ×4 (05:29→17:19)
[2016-07-21] MEDS: SENNA + DOCUSATE TABLET PO SCH (09:12)
[2016-07-21] MEDS: ENOXAPARIN 40 MG/0.4 ML INJECTION SQ SCH (09:13)
[2016-07-21] MEDS: BACLOFEN 10 MG TABLET PO SCH ×2 (09:13→15:34)
[2016-07-21] MEDS: GABAPENTIN 600 MG TABLET PO SCH ×2 (09:13→15:35)
[2016-07-21] MEDS: NS 1,000 ML IV SCH ×3 (15:12→15:26)
[2016-07-21] MEDS ORDERED: HYDROMORPHONE 2 MG/ML INJECTION IVP ONE (15:24)
[2016-07-21] MEDS ORDERED: ONDANSETRON 4 MG/2 ML INJECTION IVP PRN (16:44)
[2016-07-21] MEDS ORDERED: NITROGLYCERIN 0.4 MG SUBLINGUAL TABLET SL PRN (16:44)
[2016-07-21] MEDS ORDERED: BISACODYL 10 MG SUPPOSITORY RECTALLY PRN (16:44)
[2016-07-21] MEDS ORDERED: BISACODYL E.C. 5 MG TABLET PO PRN (16:44)
[2016-07-21] MEDS ORDERED: MAG-AL + SIM ORAL LIQUID 30ml PO PRN (16:44)
[2016-07-21] MEDS ORDERED: ATROPINE 1 MG/ML INJECTION IVP PRN (16:44)
[2016-07-21] MEDS ORDERED: PROMETHAZINE 25 MG INJECTION IVP PRN (16:44)
[2016-07-21] MEDS ORDERED: LORazepam 0.5 MG TABLET PO PRN (16:44)
[2016-07-21] MEDS ORDERED: ACETAMINOPHEN 325 MG TABLET PO PRN (16:44)
[2016-07-21] MEDS ORDERED: METOCLOPRAMIDE 10mg/2ml INJECTION IVP PRN (16:44)
[2016-07-21] MEDS: FLEET PHOSPHO - SODA ENEMA 133ml PR PRN (17:23)
[2016-07-21] MEDS ORDERED: FentaNYL 100 MCG/2 ML INJECTION IVP ONE (19:00)
--- NOTE | 2016-07-21 19:29 | Discharge Summary ---
Discharge Plan - Med Rec/Dispo Referrals/Follow Up: Pascual Jacob DO [Family Provider] - 1 Week [place] Instructions: Caffeine (By mouth) Prescriptions: New Aspirin Chewable [ASA] 81 mg PO DAILY #100 tab.chew Continue Tramadol HCl 50 mg PO TID PRN #0 PRN Reason: PAIN Baclofen [Lioresal] 10 mg PO TID Dicyclomine HCl [Bentyl] 10 mg PO TID PRN #12 capsule PRN Reason: Cramps cloNIDine HCl [Clonidine HCl] 0.2 mg PO TID #0 diazePAM [Valium] 10 mg PO BID #0 Metoprolol Tartrate 50 mg PO BIDWM #0 Hydrocodone/APAP 10/325 [[place] 10/325] 2 tab PO BID Gabapentin [Neurontin] 600 mg PO TID Discontinued Ceftriaxone [Rocephin] 1 gm IM DAILY #9 vial LIDOCAINE 1% 10ml INJ [Xylocaine 1%] 100 mg IM DAILY - Disposition 01 Discharged Home, Self-Care
--- NOTE | 2016-07-21 19:42 | Discharge Summary ---
Discharge Information Date of admission: 07/17/16 17:04 Anticipated date of discharge: 07/21/16 Attending Physician: Ruchi Alcantraa MD Primary care physician: Pascual Jacob DO Consults: Consulting Provider: Alvaro Augustin - Discharge Diagnosis (1) Hypertensive urgency Status: Acute (2) Headache Qualifiers: Headache type: other headache syndrome Qualified Code(s): G44.89 - Other headache syndrome Problem Details: Caffeine withdrawal Status: Acute (3) Elevated troponin Status: Acute (4) Ectopic atrial rhythm Problem Details: with palpitations Status: Acute (5) Constipation Qualifiers: Constipation type: drug induced constipation Qualified Code(s): K59.03 - Drug induced constipation Status: Chronic (6) Quadriplegia following spinal cord injury Status: Chronic (7) Neurogenic bladder Status: Chronic (8) Neurogenic bowel Status: Chronic (9) Nausea Status: Acute (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 Left ventricular end-diastolic dimension is normal. Left ventricular wall thickness is increased. LV systolic function is normal with ejection fraction of 74%. Right atrium is normal. Right ventricle is normal. Aortic root dimension is normal. Mitral, aortic, tricuspid, pulmonary valves are morphologically normal with mild mitral regurgitation and mild tricuspid regurgitation with normal estimated pulmonary artery systolic pressure of 18. There is no pericardial effusion. IMPRESSION 1. Normal LV systolic function with ejection fraction of 74%. 2. Concentric left ventricular hypertrophy. 3. Mild mitral regurgitation. 4. Mild tricuspid regurgitation with normal estimated pulmonary artery systolic pressure of 18. - Laboratory Labs: 07/21/16 04:05 07/21/16 04:05 Laboratory data on admission was notable only for sodium of 146, bicarbonate 31. Urinalysis had pyuria present. Urine drug screen was positive for opiates, cannabinoids, and benzos. TSH 1.29 Troponin peaked at 0.52 on 07/19/16 Lipid studies pending at discharge - Microbiology Urine culture positive for Pseudomonas sensitive only to gentamicin and tobramycin with intermediate sensitivity to Cipro. Patient was thought to be colonized and not actively infected subsequently this was not treated. - Radiology Radiology: Chest x-ray on admission demonstrated hypoinflation of the lungs without acute cardiopulmonary disease. CT of the head on admission demonstrated no acute intracranial abnormality. History of Present Illness HPI: Mr. 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 He was sent to the emergency room for evaluation of possible overdose after doubling up on usual blood pressure medications (clonidine and metoprolol) because his blood pressure was elevated. On presentation the patient reported that he become addicted to a aspirin/caffeine powder which he started taking in the past when he had a toothache; he subsequently continued taking it because it made him feel good and increased use to 8-9 packets daily. He subsequently decided to stop taking the packets and feels he is now actively withdrawing from the caffeine use. It somewhat unclear when he discontinued the aspirin/caffeine product as he took 2 packets this morning. On presentation to the emergency room the patient complained of elevated blood pressures and of severe generalized headache. He is also had some minor nausea. He denied visual change , epistaxis, chest pain, emesis, or hematuria. Blood pressure was consistently elevated in the emergency room despite administration of 60 mg of Procardia and 10 mg of hydralazine IM. He received 50 g of fentanyl IV and 1 tablet of [place] for the headache without relief. He is now admitted to the intensive care unit with hypertensive urgency and persistent blood pressures of 180-190/115-120. Hospital Course Hospital course: Mr. Stovall was admitted to the intensive care unit with uncontrolled hypertension. He was placed on a nicardipine drip. The patient fairly clearly described headache occurring in response to caffeine withdrawal acutely. Home medications were resumed for blood pressure control in conjunction with nicardipine. His chronic pain regimen was resumed with supplemental IV Dilaudid for the acute headache. By the following morning blood pressure had improved significantly and nursing had noted that blood pressure correlated strongly with pain. As long as headache was controlled the patient's blood pressure stabilized but as soon as headache recurred pressure began to climb. Headache persisted and continued to require intermittent use of IV Dilaudid with patient reluctant to convert to increased oral narcotics from baseline home use. On the patient had palpitations with telemetry demonstrating ectopic atrial rhythm with short ND intervals. Cardiology was consulted. Echo was obtained revealing LVH. Troponin bumped and mild EKG changes evolved over the next 24 hours. It was thus elected to schedule for cardiac catheterization which was performed late in the day on 07/21. Coronary arteries were unremarkable. Patient was advised at aspirin to his medication regimen as he describes past history of myocardial infarction. Patient felt stable for discharge post heart catheter following period of bed rest. Headache control has improved progressively and he felt he could manage the headache at home at this point. Blood pressure has been stable other than 1 transient episode of hypotension requiring fluid bolus the night of 07/19. On the date of discharge the patient was a little more irritable than he has been prior days but denied chest pain or palpitations. He reported more headache today that he has the last 2 days but has been nothing by mouth prior to catheterization has not taken oral pain medications. Respirations were nonlabored and cardiac rhythm regular. Patient is asked to follow-up with Dr. Jacob within [address] Augustin for routine follow-up in 1 month or as needed. >30 minutes spent on patient care and discharge care coordination today on the date of discharge. -- Discharge Plan - Med Rec/Dispo Referrals/Follow Up: Pascual Jacob DO [Family Provider] - 1 Week [place] Instructions: Caffeine (By mouth) Prescriptions: New Aspirin Chewable [ASA] 81 mg PO DAILY #100 tab.chew Continue Tramadol HCl 50 mg PO TID PRN #0 PRN Reason: PAIN Baclofen [Lioresal] 10 mg PO TID Dicyclomine HCl [Bentyl] 10 mg PO TID PRN #12 capsule PRN Reason: Cramps cloNIDine HCl [Clonidine HCl] 0.2 mg PO TID #0 diazePAM [Valium] 10 mg PO BID #0 Metoprolol Tartrate 50 mg PO BIDWM #0 Hydrocodone/APAP 10/325 [[place] 10/325] 2 tab PO BID Gabapentin [Neurontin] 600 mg PO TID Discontinued Ceftriaxone [Rocephin] 1 gm IM DAILY #9 vial LIDOCAINE 1% 10ml INJ [Xylocaine 1%] 100 mg IM DAILY - Disposition 01 Discharged Home, Self-Care
[2016-07-21] MEDS ORDERED: MIDAZOLAM 2mg/2ml INJECTION IVP ONE (21:09)
--- NOTE | 2016-07-22 12:46 | Cardiac Catheterization Report ---
DATE OF PROCEDURE July 20, 2016 The patient is a 45-year-old gentleman who was admitted with chest pain and, per patient's history, has had history of SC and percutaneous intervention in the past and whose symptoms were suggestive of unstable angina and was referred for further evaluation by cardiac catheterization and possible intervention. Informed consent was obtained after explaining the procedure and the potential risks to the patient who agreed to proceed with the procedure. PROCEDURE 1. Left heart catheterization. 2. Coronary angiography. 3. Left ventriculography. 4. Right femoral angiography to visualize the vessel for closure device. 5. Successful Mynx deployment for hemostasis. TECHNIQUE He was prepped and draped in the usual sterile techniques. 1% lidocaine was used for local anesthesia. Using modified Seldinger technique, arterial access was obtained into the right femoral artery with placement of a 6-[place] arterial sheath. Conscious sedation was performed using Versed and fentanyl. LEFT VENTRICULOGRAPHY Left ventriculography in single-plane [place] shallow projection showed normal LV systolic function with ejection fraction of about 65% with no mitral regurgitation or gradient across the aortic valve. LVEDP was about 16. CORONARY ANGIOGRAPHY Left main, left anterior descending and diagonals, left circumflex and marginals , and right coronary artery were all free of significant lesions. Right femoral angiography showed patent common femoral, proximal SFA and profunda and therefore Mynx was used for hemostasis. IMPRESSION 1. No significant obstructive coronary artery disease. 2. Normal LV systolic function with ejection fraction of about 65%. 3. Successful Mynx deployment for hemostasis. PLAN Medical management. The patient may require noncardiac chest pain workup. MTDD
== END 2016-07-21 21:10 | disposition home health service (06) | DRG 286 ==
LOC: ED 11:21 → CCU 17:04 → MED 07-18 15:43 → SRG 07-21 16:35
PROVIDERS: ADMIT Internal Medicine; ATTEND Internal Medicine